=== PATIENT | female | born 1955 | race Caucasian/White ===

== ENCOUNTER 2023-10-25 14:54 | Outpatient (AMB) | payer BC, SELFPAY ==
[2023-10-25 15:04] VITALS: BP 100/60; PULSE 89; O2SAT 95; BMI 22.3
--- NOTE | 2023-10-25 15:04 | A.OFFVIS_ITS ---
Vital Signs 10/25/23 15:04 Height 5 ft 1 in Weight 117 lb 15.157 oz BMI 22.3 BP 100/60 Blood Pressure Location Lt brachial Position Sitting Pulse 89 Pulse Source Pulse Oximeter Pulse Oximetry (%) 95 Oxygen Delivery Method Room Air Intake Visit Reasons: Asthma Composition Weatherboard Installer Required: No Allergies No Known Allergies Allergy (Verified 10/25/23 15:07) HPI Comments Details: The patient is here for pulmonary evaluation. The patient is a 68 year woman with known history of asthma and allergies. Apparently her respiratory symptoms have been getting worse. The patient had been followed closely by Allergy in [place] for many years. She received allergy shots for multiple things throughout her life. And they were very effective in beneficial for many years. Now she is dealing herself with a new insole reinforcer. She did have allergy testing done in [place] do not have the results but apparently were not as significant. She started developing worsening cough nonproductive in nature moderate severity the last few months. She tried multiple inhalers including Breo and Wixela. Those were not helpful. Prior to that she had been on Advair that worked a little better. Her primary care doctor started her on Symbicort which seems to be working better for her. Her cough is better. She still complains of chest tightness and shortness of breath. Sometimes she feels hot flashes and she has not sure if his from menopause. She did undergo pulmonary function studies at [facility] back in July 2022. Her FEV1 to FVC was 66% consistent with an obstructive process and she did have a significant response to bronchodilators. She does feel the chest tightness at times. The patient has not had a chest x-ray. I do believe that is mainly due to bronchospasms and small airways disease. Seems like she is responding well to the Symbicort. She then using it as needed at this time. Will go ahead and request additional blood work to assess her asthma phenotype. The patient also will benefit getting a chest x-ray. Will hold off on PFTs and she just had some. [facility] Medical History (Updated 10/25/23 @ 22:47 by Lasha Mac MD) Chronic allergic rhinitis Allergies Chronic cough Asthma Social History (Updated 10/25/23 @ 15:11 by AYDIN Coyle) Patient Tobacco Use Status: Never used Tobacco Review of Systems Const Denies fever(s) ENT Reports nasal congestion and Reports nasal discharge Card Denies chest pain and Reports dyspnea on exertion Resp Reports cough, Reports dyspnea on exertion and Reports wheezing GI Reports no additional complaints Musc Reports no additional complaints Skin/Breast Denies rash Daniel/Lymph Reports no additional complaints Aller/Immun Reports wheezing Physical Exam Vital Signs: Last Vital Signs Pulse 89 10/25/23 15:04 BP 100/60 10/25/23 15:04 Pulse Ox 95 10/25/23 15:04 Oxygen Delivery Method Room Air 10/25/23 15:04 BMI result Body Mass Index 22.3 Const General: comfortable HEENT Head: Yes normocephalic Neck Neck: Yes supple Chest Chest palpation & inspection: normal inspection of the chest Resp Effort & Inspection: normal respiratory effort Cardio Heart sounds: S1 normal heart sound present and S2 normal heart sound present GI Palpation (GI): Soft to palpation Skin General skin exam: no rashes or lesions noted Extrem General: Yes no clubbing, cyanosis or edema Assessment & Plan Assessment & Plan (1) Asthma: Code(s): J45.909 - Unspecified asthma, uncomplicated Category: Medical Qualifiers: Asthma severity: moderate Asthma persistence: persistent Asthma complication type: uncomplicated Qualified Code(s): J45.40 - Moderate persistent asthma, uncomplicated (2) Chronic cough: Code(s): R05.3 - Chronic cough Category: Medical (3) Allergies: Code(s): T78.40XA - Allergy, unspecified, initial encounter Category: Medical Qualifiers: Encounter type: initial encounter Qualified Code(s): T78.40XA - Allergy, unspecified, initial encounter (4) Chronic allergic rhinitis: Code(s): J30.9 - Allergic rhinitis, unspecified Category: Medical Plan continue Symbicort RASTA as needed continue antihistamines as needed bloodwork/ allergy testing CXR F/U 2 months Orders: Orders Complete Blood Count Auto Diff Today J45.909 - Unspecified asthma, uncomplicated, R05.3 - Chronic cough, T78.40XA - Allergy, unspecified, initial encounter Immunoglobulin E Today J45.909 - Unspecified asthma, uncomplicated, R05.3 - Chronic cough, T78.40XA - Allergy, unspecified, initial encounter XR chest 2V Today J45.909 - Unspecified asthma, uncomplicated, R05.3 - Chronic cough, T78.40XA - Allergy, unspecified, initial encounter Resp Allergy Profile Region I Today J45.909 - Unspecified asthma, uncomplicated, R05.3 - Chronic cough, R91.1 - Solitary pulmonary nodule, T78.40XA - Allergy, unspecified, initial encounter Hypersensitive Pneumonitis Prf Today J45.909 - Unspecified asthma, uncomplicated, R05.3 - Chronic cough, R91.8 - Other nonspecific abnormal finding of lung field, T78.40XA - Allergy, unspecified, initial encounter Erythrocyte Sedimentation Rate Today J45.909 - Unspecified asthma, uncomplicate d, R05.3 - Chronic cough, T78.40XA - Allergy, unspecified, initial encounter OLLIE Reflex Titer and Pattern Today J45.909 - Unspecified asthma, uncomplicated, R05.3 - Chronic cough, T78.40XA - Allergy, unspecified, initial encounter Coding Level of Care Code New Pt Level 4 (17769) Diagnoses Moderate persistent asthma without complication J45.40 Asthma severity: moderate Asthma persistence: persistent Asthma complication type: uncomplicated Chronic cough R05.3 Allergy, initial encounter T78.40XA Encounter type: initial encounter Chronic allergic rhinitis J30.9 Time Spent (min) 40
== END 2023-10-25 15:35 | disposition home or self-care (01) ==
PROVIDERS: PCP Nurse Practitioner; Visit Provider Hospitalist
DX: J45.40 Moderate persistent asthma, uncomplicated (principal); R05.3 Chronic cough; T78.40XA Allergy, unspecified, initial encounter; J30.9 Allergic rhinitis, unspecified
CPT/HCPCS: 99204

== ENCOUNTER 2023-10-25 14:54 | Outpatient (REF) | payer BC, SELFPAY ==
[2023-10-25 15:52] LABS: MANUAL DIFF FLAG NO
[2023-10-25 16:38] LABS: Basophils Absolute Auto 0.1 X10*3/uL (0.0-0.2); Basophils Percent Auto 0.7 % (0-2); Eosinophils Absolute Auto 0.4 X10*3/uL (0.0-0.4); Eosinophils Percent Auto 6.3 % (0-4); Hematocrit 40.8 % (37.0-47.0); Hemoglobin 13.6 g/dl (12.0-16.0); Imm Gran Abs Auto 0.01 X10*3/uL (0.00-0.03); Imm Gran Pct Auto 0.1 % (0.0-0.4); Lymphocytes Absolute Auto 0.9 X10*3/uL (1.2-4.9); Lymphocytes Percent Auto 13.4 % (20-40); Mean Corpuscular HGB Conc 33.3 g/dl (31.0-35.0); Mean Corpuscular Hemoglobin 31.5 pg (27.0-33.0); Mean Corpuscular Volume 94.4 fL (80.0-98.0); Mean Platelet Volume 11.5 fL (9.4-12.3); Monocytes Absolute Auto 0.6 X10*3/uL (0.1-1.2); Monocytes Percent Auto 9.3 % (2-11); Neutrophils Absolute Auto 4.8 x10*3/uL (2.0-8.3); Neutrophils Percent Auto 70.2 % (45-73); Platelet Count 223 X10*3/uL (160-400); Red Blood Count 4.32 X10*6/uL (4.20-5.50); Red Cell Distribution Width 12.5 % (11.0-16.0); White Blood Count 6.9 X10*3/uL (4.8-10.8)
[2023-10-25 17:20] LABS: Erythrocyte Sedimentation Rate 10 MM/HR (0-20)
[2023-10-27 16:14] LABS: Anti Nuclear Antibody Screen NEGATIVE (NEGATIVE)
[2023-10-28 01:18] LABS: Class Alternaria alternata 0; Class Aspergillus fumigatus 0; Class Bermuda Grass 3; Class Birch 2; Class Cat Dander 2; Class Cladosporium herbarum 0; Class Cockroach 0/1; Class Common Ragweed 2; Class Cottonwood 2; Class Derm. pterony 0/1; Class Dermatophagoides farinae 1; Class Dog Dander 1; Class Elm 1; Class Maple Box Elder 2; Class Mountain Cedar 0/1; Class Mouse Urine Protein 0; Class Mugwort 3; Class Oak 2; Class Penicillium crysogenum 0; Class Rough Pigweed 0; Class Sheep Sorrel 0/1; Class Sycamore 0/1; Class Timothy Grass 2; Class Walnut Tree 0/1; Class White Ash 0/1; Class White Mulberry 0; D001 IgE D pteronyssinus 0.29 kU/L; D002 - IgE D farinae 0.59 kU/L; E001 - IgE Cat Dander 2.35 kU/L; E005 - IgE Dog Dander 0.58 kU/L; E072-IgE Mouse Urine <0.10 kU/L; I006-IgE Cockroach, German 0.19 kU/L; Immunoglobulin E 368 kU/L (<OR=114); M001 IgE Penicillium chrysogen <0.10 kU/L; M002 - IgE Cladosporium herbar <0.10 kU/L; M003 - IgE Aspergillus fumigat <0.10 kU/L; M006 - IgE Alternaria alternat <0.10 kU/L; T001 IgE Maple/Box Elder 2.27 kU/L; T003 IgE Common Silver Birch 2.98 kU/L; T006 - IgE Cedar, Mountain 0.15 kU/L; T007 - IgE Oak, White 2.39 kU/L; T008 IgE Elm, American 0.43 kU/L; T010 - IgE Walnut 0.21 kU/L; T014 - IgE Cottonwood 0.73 kU/L; T015 - IgE Ash, White 0.17 kU/L; T070 - IgE White Mulberry <0.10 kU/L; W001 - IgE Ragweed, Short 2.44 kU/L; W006 - IgE Mugwort 6.33 kU/L; W014 IgE Pigweed, Common <0.10 kU/L
[2023-11-14 11:47] LABS: Asperg fumigatus Precip Abs NEGATIVE
[2023-11-14 11:48] LABS: Micropoly faeni Abs NEGATIVE; Pigeon serum Abs NEGATIVE; Saccharo pora viridis Abs NEGATIVE; Thermo candidus Abs NEGATIVE; Thermoa vulgaris #1 NEGATIVE
== END 2023-10-25 14:55 | disposition home or self-care (01) ==
LOC: HO.LAB 14:54
PROVIDERS: PCP Nurse Practitioner; Visit Provider Hospitalist
DX: R05.3 Chronic cough (principal); J45.909 Unspecified asthma, uncomplicated; T78.40XA Allergy, unspecified, initial encounter; R91.1 Solitary pulmonary nodule; R91.8 Other nonspecific abnormal finding of lung field; J45.40 Moderate persistent asthma, uncomplicated
CPT/HCPCS: 36415; 82785; 85025; 85652; 86003; 86038; 86331; 86606; 86609

== ENCOUNTER 2024-02-10 14:29 | Outpatient (AMB) | payer BC, SELFPAY ==
--- NOTE | 2024-02-10 14:38 | A.OFFVIS_ITS ---
Vital Signs 02/10/24 14:39 Height 5 ft 1 in Weight 114 lb 10.246 oz BMI 21.7 BP 128/70 Blood Pressure Location Lt brachial Position Sitting Pulse 75 Pulse Source Pulse Oximeter Pulse Oximetry (%) 98 Oxygen Delivery Method Room Air Intake Visit Reasons: Asthma Applications Trainer Required: No Allergies No Known Allergies Allergy (Verified 02/10/24 14:41) HPI Comments Details: The patient is a 68 year woman with known history of asthma and allergies. Apparently her respiratory symptoms have been getting worse. The patient had been followed closely by Allergy in [place] for many years. She received allergy shots for multiple things throughout her life. And they were very effective in beneficial for many years. 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 She did have allergy testing done in [place] do not have the results but apparently were not as significant. She started developing worsening cough nonproductive in nature moderate severity the last few months. She tried multiple inhalers including Breo and Wixela. Those were not helpful. Prior to that she had been on Advair that worked a little better. Her primary care doctor started her on Symbicort which seems to be working better for her. Her cough is better. She still complains of chest tightness and shortness of br eath. Sometimes she feels hot flashes and she has not sure if his from menopause. She did undergo pulmonary function studies at [facility] back in July 2022. Her FEV1 to FVC was 66% consistent with an obstructive process and she did have a significant response to bronchodilators. She does feel the chest tightness at times. The patient has not had a chest x- ray. I do believe that is mainly due to bronchospasms and small airways disease. Seems like she is responding well to the Symbicort. She then using it as needed at this time. Will go ahead and request additional blood work to assess her asthma phenotype. The patient also will benefit getting a chest x- ray. Will hold off on PFTs and she just had some. 02/10/2024 the patient is here for pulmonary follow-up visit. Overall the patient has been doing well. She has been using her respiratory therapy as prescribed. Has not required her any rescue therapy. She does still get short of breath when she is exercising or going up a flight of stairs. We did review her pulmonary function studies the patient still has an obstructive airway component. She has significant small airways disease. This is consistent with her diagnosis of asthma. He does not have great reversibility of the central airways however. She has not had a chest x-ray. there was an order pending. she can have that whenever able. The patient will start using her rescue inhaler prior to exercise to see if she can provide some increased bronchodilation prior to the exercise. The patient also be a good candidate for singular. Will go ahead and start that. Hopefully we can deescalate her inhaler cortical steroids o While on a steroid sparing agent. [facility] Medical History (Updated 10/25/23 @ 22:47 by Lasha Mac MD) Chronic allergic rhinitis Allergies Chronic cough Asthma Social History (Updated 10/25/23 @ 15:11 by AYDIN Coyle) Patient Tobacco Use Status: Never used Tobacco Review of Systems Const Denies fever(s) ENT Reports nasal congestion and Reports nasal discharge Card Denies chest pain and Reports dyspnea on exertion Resp Reports cough, Reports dyspnea on exertion and Reports wheezing GI Reports no additional complaints Musc Reports no additional complaints Skin/Breast Denies rash Daniel/Lymph Reports no additional complaints Aller/Immun Reports wheezing Physical Exam Vital Signs: Last Vital Signs Pulse 75 02/10/24 14:39 BP 128/70 02/10/24 14:39 Pulse Ox 98 02/10/24 14:39 Oxygen Delivery Method Room Air 02/10/24 14:39 BMI result Body Mass Index 21.7 Const General: comfortable HEENT Head: Yes normocephalic Neck Neck: Yes supple Chest Chest palpation & inspection: normal inspection of the chest Resp Effort & Inspection: normal respiratory effort Cardio Heart sounds: S1 normal heart sound present and S2 normal heart sound present GI Palpation (GI): Soft to palpation Skin General skin exam: no rashes or lesions noted Extrem General: Yes no clubbing, cyanosis or edema Assessment & Plan Assessment & Plan (1) Asthma: Code(s): J45.909 - Unspecified asthma, uncomplicated Category: Medical Qualifiers: Asthma complication type: uncomplicated Asthma persistence: persistent Asthma severity: moderate Qualified Code(s): J45.40 - Moderate persistent asthma, uncomplicated (2) Chronic cough: Code(s): R05.3 - Chronic cough Category: Medical (3) Allergies: Code(s): T78.40XA - Allergy, unspecified, initial encounter Category: Medical Qualifiers: Encounter type: initial encounter Qualified Code(s): T78.40XA - Allergy, unspecified, initial encounter (4) Chronic allergic rhinitis: Code(s): J30.9 - Allergic rhinitis, unspecified Category: Medical Plan stop wixela start Advair HFA RASTA as needed continue antihistamines as needed singulair F/U 4-6 months Medications: New montelukast (Singulair) 10 mg PO BEDTIME 30 tabs 11RF 30 days J45.909 - Unspecified asthma, uncomplicated fluticasone propion-salmeterol 230-21 mcg/actuation (Advair HFA) 2 puffs inhalation BID 12 grams 11RF 30 days Coding Level of Care Code Est Pt Level 4 (74712) Diagnoses Moderate persistent asthma without complication J45.40 Asthma complication type: uncomplicated Asthma persistence: persistent Asthma severity: moderate Chronic cough R05.3 Allergy, initial encounter T78.40XA Encounter type: initial encounter Chronic allergic rhinitis J30.9 Time Spent (min) 16
[2024-02-10 14:39] VITALS: BP 128/70; PULSE 75; O2SAT 98; BMI 21.7
== END 2024-02-10 15:04 | disposition home or self-care (01) ==
PROVIDERS: PCP Internal Medicine; Visit Provider Hospitalist
DX: J45.40 Moderate persistent asthma, uncomplicated (principal); R05.3 Chronic cough; T78.40XA Allergy, unspecified, initial encounter; J30.9 Allergic rhinitis, unspecified
CPT/HCPCS: 99214

== ENCOUNTER → 2024-02-10 14:29 | Outpatient (BNVA) | payer BC, SELFPAY | PROVIDERS: PCP Nurse Practitioner; Visit Provider Hospitalist ==

== ENCOUNTER 2024-09-21 13:03 | Outpatient (AMB) | payer BC, SELFPAY ==
[2024-09-21 13:06] VITALS: BP 90/50; PULSE 85; O2SAT 96; BMI 22.9
--- NOTE | 2024-09-21 13:06 | MHC.OFFVIS ---
Vital Signs 09/21/24 13:06 Height 5 ft 1 in Weight 121 lb 4.068 oz BMI 22.9 BP 90/50 L Blood Pressure Location Rt brachial Position Sitting Pulse 85 Pulse Source Pulse Oximeter Pulse Oximetry (%) 96 Oxygen Delivery Method Room Air Intake Visit Reasons: Asthma Physical Damage Appraiser Required: No Accompanied by: Self / Same As Patient Allergies No Known Allergies Allergy (Verified 09/21/24 13:08) HPI Comments Details: The patient is a 69 year woman with known history of asthma and allergies. Apparently her respiratory symptoms have been getting worse. The patient had been followed closely by Allergy in [place] for many years. She received allergy shots for multiple things throughout her life. And they were very effective in beneficial for many years. 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 She did have allergy testing done in I do not have the results but apparently were not as significant. She started developing worsening cough nonproductive in nature moderate severity the last few months. She tried multiple inhalers including Breo and Wixela. Those were not helpful. Prior to that she had been on Advair that worked a little better. Her primary care doctor started her on Symbicort which seems to be working better for her. Her cough is better. She still complains of chest tightness and shortness of breath. Sometimes she feels hot flashes and she has not sure if his from menopause. She did undergo pulmonary function studies at [facility] back in July 2022. Her FEV1 to FVC was 66% consistent with an obstructive process and she did have a significant response to bronchodilators. She does feel the chest tightness at times. The patient has not had a chest x-ray. I do believe that is mainly due to bronchospasms and small airways disease. Seems like she is responding well to the Symbicort. She then using it as needed at this time. Will go ahead and request additional blood work to assess her asthma phenotype. The patient also will benefit getting a chest x-ray. Will hold off on PFTs and she just had some. 02/10/2024 the patient is here for pulmonary follow-up visit. Overall the patient has been doing well. She has been using her respiratory therapy as prescribed. Has not required her any rescue therapy. She does still get short of breath when she is exercising or going up a flight of stairs. We did review her pulmonary function studies the patient still has an obstructive airway component. She has significant small airways disease. This is consistent with her diagnosis of asthma. He does not have great reversibility of the central airways however. She has not had a chest x-ray. there was an order pending. she can have that whenever able. The patient will start using her rescue inhaler prior to exercise to see if she can provide some increased bronchodilation prior to the exercise. The patient also be a good candidate for singular. Will go ahead and start that. Hopefully we can deescalate her inhaler cortical steroids o While on a steroid sparing agent. 09/21/2024 the patient is here for a pulmonary follow-up visit. She has not been feeling well since about May. She started developing worsening wheezing chest tightness and cough. She has been using her rescue inhaler multiple times a day. She continues on the maintenance inhaler Advair with partial response. She continues with Singulair at nighttime. She was not aware that she can use Zyrtec along with the Singulair which I explained to her that due to different allergy medications. We did review her blood work she does have significant eosinophilia and also elevations in the IgE because of her severe persistent allergic asthma. Based on the fact that she is optimized on therapy and she is requiring her inhaler on a regular basis and she requires frequent prednisone bursts will go ahead and start the patient on Dupixent. [facility] Medical History (Updated 09/24/24 @ 20:50 by Lasha Mac MD) Chronic allergic rhinitis Allergies Chronic cough Asthma Social History Patient Tobacco Use Status: Never used Tobacco Review of Systems Const Denies chills, Denies fatigue, Denies fever(s), Denies weight gain and Denies weight loss ENT Denies dizziness Card Denies chest pain, Denies leg edema, Denies lightheadedness, Denies palpitations, Reports dyspnea on exertion, Denies orthopnea and Denies other Resp Reports cough, Reports dyspnea on exertion and Reports wheezing GI Denies hematochezia and Denies change in stool character Musc Denies abnormal gait, Denies muscle weakness, Denies numbness, Denies radiating pain into limb and Denies tingling Neuro Denies abnormal gait, Denies dizziness, Denies numbness and Denies tingling Endo Denies fatigue and Denies palpitations Aller/Immun Reports wheezing Physical Exam Vital Signs: Last Vital Signs Pulse 85 09/21/24 13:06 BP 90/50 L 09/21/24 13:06 Pulse Ox 96 09/21/24 13:06 Oxygen Delivery Method Room Air 09/21/24 13:06 BMI result Body Mass Index 22.9 Const General: comfortable HEENT Head: Yes normocephalic Neck Neck: Yes supple Chest Chest palpation & inspection: normal inspection of the chest Resp Effort & Inspection: normal respiratory effort Auscultation: wheezes and diminished lung sounds Cardio Heart sounds: S1 normal heart sound present and S2 normal heart sound present GI Palpation (GI): Soft to palpation Skin General skin exam: no rashes or lesions noted Extrem General: Yes no clubbing, cyanosis or edema Assessment & Plan Assessment & Plan (1) Asthma: Code(s): J45.909 - Unspecified asthma, uncomplicated Category: Medical Qualifiers: Asthma complication type: uncomplicated Asthma persistence: persistent Asthma severity: moderate Qualified Code(s): J45.40 - Moderate persistent asthma, uncomplicated (2) Chronic cough: Code(s): R05.3 - Chronic cough Category: Medical (3) Allergies: Code(s): T78.40XA - Allergy, unspecified, initial encounter Category: Medical Qualifiers: Encounter type: initial encounter Qualified Code(s): T78.40XA - Allergy, unspecified, initial encounter (4) Chronic allergic rhinitis: Code(s): J30.9 - Allergic rhinitis, unspecified Category: Medical Plan Start Trelegy 200mcg daily start dupixent RASTA as needed continue antihistamines as needed Bloodwork singulair F/U 4-6 months Orders: Orders Complete Blood Count Auto Diff 09/21/24 J45.40 - Moderate persistent asthma, uncomplicated Erythrocyte Sedimentation Rate 09/21/24 J45.40 - Moderate persistent asthma, uncomplicated Immunoglobulin E 09/21/24 J45.40 - Moderate persistent asthma, uncomplicated Immunoglobulins,IgG IgA IgM 09/21/24 J45.40 - Moderate persistent asthma, uncomplicated Medications: New prednisone PO daily; Take 2 tabs daily x 5 days, then 1 tablet daily x 5 days 15 tabs 0RF 10 days nmwzmbcemmp-[id number]-cmpavynx 200-62.5-25 mcg (Trelegy Ellipta) 1 inh inhalation DAILY 60 ea 12RF 30 days Coding Level of Care Code Est Pt Level 4 (14771) Complex EM visit Add On G2211 Diagnoses Moderate persistent asthma without complication J45.40 Asthma complication type: uncomplicated Asthma persistence: persistent Asthma severity: moderate Chronic cough R05.3 Allergy, initial encounter T78.40XA Encounter type: initial encounter Chronic allergic rhinitis J30.9 Time Spent (min) 17
--- OUTSIDE RECORDS SUMMARY | 2024-09-21 13:36 | XMS_ITS ---
Author Organization [facility] Address [address] [place] [address] Care Team Providers Care Manager Union Name Role Phone ANETTE PINA Primary Care Provider Judith Rodriguez [phone] REASON FOR VISIT BURNING UTI Medications Medication SIG (Take, Route, Fr equency, Duration) Notes Start Date End Date Status Bactrim DS 800-160 MG 1 tablet Orally TW ICE A DAY for 7 days 05/25/2024 Active Encounters Encounter Location Date Provider Diagnosis [facility] [address] [address] 05/25/2024 Judith Sharma Urinary tract infection, site not specified N39.0 Assessments Encounter Date Diagnosis (ICD Code) Assessment Notes Treatment Notes Treatment Clinical Notes Section Notes 05/25/2024 Urinary tract infection, site not specified (ICD-10 - N39.0) Plan Of Treatment Medication Medication Name Sig Start Date Stop Date Notes Bactrim DS 800-160 MG 1 tablet Orally TW ICE A DAY for 7 days 05/25/2024 Pending Test Test Name Order Date Urinalysis, Complete-[id number] 05/25/2024 Urine Culture, Routine-[id number] 05/25/2024 Next Appt Details Provider Name:Judith mcclure, 01/10/2025 10:00:00 AM, [address] [place] [address], [address], [place], [address], Progress Notes * DALY, ROCKYDOB:1955 (69 yo F)Acc No.[id number]:05/25/2024 Patient:?ROCKY KAUFFMAN :1955???Age:69 Y???Sex:Female Address:[address] [place] [address], [address] * Refills? Start Bactrim DS Tablet, 800-160 MG, Orally, 14 Tablet, 1 tablet, TWICE A DAY, 7 days, Refills=0 Subjective: * Chief Complaints: * ???BURNING UTI * Medical History:? * Surgical History:? * Hospitalization/Major Diagno stic Procedure:? * Medications:? Objective: * Vitals:? * Physical Examination:? Assessment: * Assessment: 1.?Urinary tract infection, site not specified - N39.0??? Plan: * Treatment: ?LAB: Urine Culture, Routine-[id number]* MAITE UTI 2.?Others? Start Bactrim DS Tablet, 800-160 MG, 1 tablet, Orally, TWICE A DAY, 7 days, 14 Tablet, Refills 0. ? * Procedure Codes:? * true * Date:? Generated for Valorie velarde/Darwin/eTransmitting on:?09/21/2024 01:36 PM EDT
--- OUTSIDE RECORDS SUMMARY | 2024-09-21 13:36 | XMS_ITS | Clinical Summary ---
Author Organization [facility] Address [address] [place] [address] Care Team Providers Care Winterizer Name Role Phone Unavailable Primary Care Provider Unavailabl e Social History Tobacco Use Types Packs/Day Years Used Date Smoking Tobacco: Never Assessed Comments Unknown Sex and Gender Information Value Date Recorded Sex Assigned at Not on file Legal Sex Female 8:42 AM EST Gender Identity Not on file Sexual Orientation Not on file Plan of Treatment Health Maintenance Due Date Last Done Comments DTaP,Tdap,and Td Vaccines (1 - Tdap) 1976 Pneumococcal Vaccine: 50+ Years (1 of 1 - PCV) 2007 Zoster Vaccines (1 of 2) 2007 Colorectal Cancer Screening: Colonoscopy 05/09/2022 Depression Screening 05/09/2022 Falls Risk Assessment 05/09/2022 Hepatitis C Screening 05/09/2022 Social Influencers of Health Screening 05/09/2022 COVID-19 Vaccine ( season) 2024 Breast Cancer Screening 01/05/2025 01/06/20 23, 01/01/2022, 12/04/2020, Additional history exists Influenza Vaccine (Season Ended) 2025 RSV Immunization Adult Patients (1 - 1-dose 75+ series) 2032 Osteoporosis Screening (Bone Density Screening) 02/13/2034 02/14/2024, 01/05/2023, 12/04/2020, Additional history exists HIB Vaccines Aged Out No longer eligi ble based on patient's age to complete this topic HPV Vaccines Aged Out No longer eligi ble based on patient's age to complete this topic Hepatitis A Vaccines Aged Out No long er eligible based on patient's age to complete this topic Hepatitis B Vaccines Aged Out No long er eligible based on patient's age to complete this topic IPV Vaccines Aged Out No longer eligi ble based on patient's age to complete this topic MMR Vaccines Aged Out No longer eligi ble based on patient's age to complete this topic Meningococcal ACWY Vaccine Aged Out N o longer eligible based on patient's age to complete this topic Meningococcal B Vaccine Aged Out No l onger eligible based on patient's age to complete this topic RSV Immunization Patients Under 20 months Aged Out No longer eligible based on patient's age to complete this topic Varicella Vaccines Aged Out No longer eligible based on patient's age to complete this topic Procedures Procedure Name Priority Date/Time Associated Diagnosis Comments [facility] DEXA AXIAL SKELETON Routine 02/14/2024 3:57 PM EDT Age-related osteoporosis without current pathological fracture [facility] SCREENING DIGITAL Routine 01/05/2023 10:58 AM EDT Encounter for screening mammogram for malignant neoplasm of breast from Last 3 Months or Most Recently Relevant to Health Maintenance Results * [facility] DEXA AXIAL SKELETON (02/14/2024 3:57 PM EDT) Anatomical Region Laterality Modality Mammography 02/14/2024 1:51 PM EDT Narrative 02/14/2024 3:57 PM EDT [facility] Diagnostic Imaging Department [address] [place], [place] [id number] Patient: ??ROCKY KAUFFMAN ?/Age/Sex: 1955 - - Unit#: ??[id number] ? Location/Status: ??SPDIMAM/REG CLI ? Mnemonic/Ordering Site: ??MAMDEXAAX/SPMAM Ordering Physician: ??JUDITH MERCER MD [facility] Dexa Axial Skeleton - 02/14/24 - [id number] Report Status:Signed History: Low estrogen state due to menopause. Personal history of fracture. Parent hip fracture. Rheumatoid arthritis. Comparison: 01/05/23 Findings: Bone densitometry is performed utilizing dual energy x-ray absorptiometry (DXA) in the [employer] unit. The lumbar spine and proximal femora are evaluated in the AP projection. The FRAX questionaire was completed. The results indicate osteoporosis, with a left femoral neck T-score of -2.7. The Z score is -1.6, indicating low bone mineral density for age. There has been a statistically significant decrease in bone mineral density in the spine since the previous study. ??The detailed DEXA report will be mailed to the referring physician's office. DualFemur FRAX: 10-year Probability of Fracture: Major Osteoporotic 45.0 percent ??Hip 10.1 percent. IMPRESSION: Osteoporosis. [id number] Dictating Physician: ??DIVINA YOUNG MD Electronically Signed by: ??DIVINA YOUNG MD Dic Date/Time: ??02/14/24 1555 Sign date/Time: ??02/14/24 1557 Procedure Note Divina Young MD - 03/21/2024 [facility] Diagnostic Imaging Department [address] [place] [address] Patient: ROCKY KAUFFMAN Angie MendenhallB./Age/Sex: 1955 - 68 - F Unit#: [id number] Location/Status: SPDIMAM/REG CLI Mnemonic/Ordering Site: MAMDEXAAX/SPMAM Ordering Physician: JUDITH MERCER MD [facility] Dexa Axial Skeleton - 02/14/24 - [id number] Report Status:Signed History: Low estrogen state due to menopause. Personal history offracture. Parent hip fracture. Rheumatoid arthritis. Comparison: 01/05/23 Findings: Bone densitometry is performed utilizing dual energy x-ray absorptiometry(DXA) in the [employer] unit. The lumbar spine and proximal femora areevaluated in the AP projection. The FRAX questionaire was completed. The results indicate osteoporosis, with a left femoral neck T-score of-2.7. The Z score is -1.6, indicating low bone mineral density for age. There has been a statistically significant decrease in bone mineraldensity in the spine since the previous study. The detailed DEXA report will bemailed to the referring physician's office. DualFemur FRAX: 10-year Probability of Fracture: Major Osteoporotic 45.0 percent Hip 10.1 percent. IMPRESSION: Osteoporosis. [id number] Dictating Physician: DIVINA YOUNG MD Electronically Signed by: DIVINA YOUNG MD Dic Date/Time: 02/14/24 1558 Sign date/Time: 02/14/24 1552 us Judith Mercer MD IMG BI PROCEDURES Final Re sult * [facility] SCREENING DIGITAL (01/05/2023 10:58 AM EDT) Anatomical Region Laterality Modality Mammography 01/05/2023 9:13 AM EDT Narrative 01/05/2023 10:58 AM EDT [facility] Diagnostic Imaging Department [address] [place] [id number] Patient: ??ROCKY KAUFFMAN ?/Age/Sex: 1955 - 67 - F Unit#: ??[id number] ? Location/Status: ??SPDIMAM/REG CLI ? Mnemonic/Ordering Site: ??DIGSC/SPMAM Ordering Physician: ??ADRIENNE NEW MD [facility] Screening Digital - 01/05/23 - 957 Report Status:Signed EXAM: [facility] Screening Digital EXAM DATE AND TIME: 01/05/2023 9:59 AM HISTORY: ??Annual screening, COMPARISON: ??01/01/2022, 12/04/2020, 10/25/2008, 09/17/2003 TECHNIQUE: Bilateral digital breast tomosynthesis was performed in the CC and MLO projections. Computer aided detection with CSRware 3D 3.1 was employed. TISSUE DENSITY: b. There are scattered areas of fibroglandular density. FINDINGS: Possible developing asymmetry in the right breast at 6 o'clock, mid depth, seen best on image 24 of the CC tomography. ??No suspicious finding in the left breast. IMPRESSION: Possible developing asymmetry in the right breast at 6 o'clock, mid depth, seen best on image 24 of the CC tomography. BI-RADS: ??Category 0: Incomplete - Need Additional Imaging Evaluation RECOMMENDATION(S): Recommend right breast diagnostic mammogram with right cc spot compression tomography. 3341F, 7025F Dictating Physician: ??NACHO BARBA MD Electronically Signed by: ??NACHO BARBA MD Dic Date/Time: ??01/05/23 1051 Sign date/Time: ??01/05/23 1058 Procedure Note Nacho Barba MD - 07/12/2023 [facility] Diagnostic Imaging Department [address] [place] [id number] Patient: ROCKY KAUFFMAN Angie /Age/Sex: 1955 - 67 - F Unit#: [id number] [facility]Ordering Site: [facility] Ordering Physician: ADRIENNE NEW MD Benjamin Screening Digital - 01/05/23 - 957 Report Status:Signed EXAM: Benjamin Screening Digital EXAM DATE AND TIME: 01/05/2023 9:59 AM HISTORY: Annual screening, COMPARISON: 01/01/2022, 12/04/2020, 10/25/2008, 09/17/2003 TECHNIQUE: Bilateral digital breast tomosynthesis was performed in the CCand MLO projections. Computer aided detection with CSRware 3D 3.1was employed. TISSUE DENSITY: b. There are scattered areas of fibroglandular density. FINDINGS: Possible developing asymmetry in the right breast at 6 o'clock, mid depth,seen best on image 24 of the CC tomography. No suspicious finding in theleft breast. IMPRESSION: Possible developing asymmetry in the right breast at 6 o'clock, mid depth,seen best on image 24 of the CC tomography. BI-RADS: Category 0: Incomplete - Need Additional Imaging Evaluation RECOMMENDATION(S): Recommend right breast diagnostic mammogram with right cc spotcompression tomography. 3341F, 7025F Dictating Physician: ANCHO BARBA MD Electronically Signed by: NACHO BARBA MD Dic Date/Time: 01/05/23 1051 Sign date/Time: 01/05/23 1058 Adrienne New MD IMG BI PROCEDURES Final Result from Last 3 Months or Most Recently Relevant to Health Maintenance
--- OUTSIDE RECORDS SUMMARY | 2024-09-21 13:37 | XMS_ITS ---
Author Organization [facility] Address [address] [place] [address] Care Team Providers Care Back Shoe Operator Name Role Phone ANETTE PINA Primary Care Provider Judith Rodriguez [phone] REASON FOR VISIT STILL W/UTI SX'S Encounters Encounter Location Date Provider Diagnosis [facility] [address] [address] 06/01/2024 Judith Sharma Plan Of Treatment Next Appt Details Provider Name:Judith mcclure, 01/10/2025 10:00:00 AM, [address] [place] [address], [address], [place], [address], Progress Notes * ROCKY KAUFFMANDOB:1955 (69 yo F)Acc No.[id number]:06/01/2024 Patient:?ROCKY KAUFFMAN :1955???Age:69 Y???Sex:Female Address:[address] [place] [address], [address] * true * Date:? Generated for Printi prachi/Darwin/eTransmitting on:?09/21/2024 01:36 PM EDT
--- OUTSIDE RECORDS SUMMARY | 2024-09-21 13:37 | XMS_ITS ---
Author Organization [facility] Address [address] [facility] [address] [place] [address] Care Team Providers Care Signal Processing Engineer Name Role Phone ANETTE PINA Primary Care Provider Judith Rodriguez Unavailable [phone] Results Component Value Reference Range Notes Urinalysis, Complete-[id number] Reviewed date:05/28/2024 07:58:19 AM Interpretation: Performing Lab:[facility], [address] [place] [address], Phone - [phone], Director - Eddie Notes/Report: Clinical Information:SRC:UC Clinical Information:SRC:UC Specific [place] 1.006 1.005-1.030 pH 6.5 5.0-7.5 Urine-Color Yellow Yellow Appearance Cloudy Clear WBC Esterase 3+ Negative Protein Negative Negative/Trace Glucose Negative Negative Ketones Negative Negative Occult Blood 1+ Negative Bilirubin Negative Negative Urobilinogen,Semi-Qn 0.2 0.2-1.0 mg/dL Nitrite, Urine Negative Negative Microscopic Examination See below: Micr oscopic was indicated and was performed. WBC >30 0 - 5 /hpf RBC None seen 0 - 2 /hpf Epithelial Cells (non renal) 0-10 0 - 10 /hpf Casts None seen None seen /lpf Bacteria Many None seen/Few Urine Culture, Routine-[id number] Reviewed date:05/28/2024 07:58:06 AM Interpretation: Performing Lab:[facility], [address] [facility], [place], Phone - [phone], Director - Eddie Notes/Report: Clinical Information:SRC:UC Clinical Information:SRC:UC Urine Culture, Routine Final report Result 1 Escherichia coli Greater than 100,000 colony forming units per mL Cefazolin <=4 ug/mL Cefazolin with an AGUSTIN <=16 predicts susceptibility to the oral agents cefaclor, cefdinir, cefpodoxime, cefprozil, cefuroxime, cephalexin, and loracarbef when used for therapy of uncomplicated urinary tract infections due to E. coli, Klebsiella pneumoniae, and Proteus mirabilis. Antimicrobial Susceptibility S = Susceptible; I = Intermediate; R = Resistant P = Positive; N = Negative MICS are expressed in micrograms per mL Antibiotic RSLT#1 RSLT#2 RSLT#3 RSLT#4 Amoxicillin/Clavulanic Acid S Ampicillin R Cefepime S Ceftriaxone S Cefuroxime S Ciprofloxacin S Ertapenem S Gentamicin S Imipenem S Levofloxacin S Meropenem S Nitrofurantoin S Piperacillin/Tazobactam S Tetracycline S Tobramycin S Trimethoprim/Sulfa S PDF Report Reviewed date:05/28/2024 07:56:41 AM Interpretation: Performing Lab:[facility], [address] [place] [address], [place], Phone - [phone], Director - Eddie Notes/Report: Clinical Information:SRC:UC REASON FOR VISIT UTI SX'S AGAIN Encounters Encounter Location Date Provider Diagnosis [facility] [address] [place] [address] 05/16/2024 Judith Sharma Frequency of micturition R35.0 Assessments Encounter Date Diagnosis (ICD Code) Assessment Notes Treatment Notes Treatment Clinical Notes Section Notes 05/16/2024 Frequency of micturition (ICD-10 - R35.0) Plan Of Treatment Next Appt Details Provider Name:Judith Angie mcclure, 01/10/2025 10:00:00 AM, [address], [address], [place], [address], Progress Notes * PARADISE KAUFFMANROGEDOB:1955 (69 yo F)Acc No.[id number]:05/16/2024 Patient:?ROCKY KAUFFMAN :1955???Age:69 Y???Sex:Female Address:[address] [place] [address], [place] [address] Subjective: * Chief Complaints: * ???UTI SX'S AGAIN * Medical History:? * Surgical History:? * Hospitalization/Major Diagno stic Procedure:? * Medications:? Objective: * Vitals:? * Physical Examination:? Assessment: * Assessment: 1.?Frequency of micturition - R35.0??? Plan: * Treatment: * Procedure Codes:? * true * Date:? Generated for Valorie velarde/Darwin/Judith on:?09/21/2024 01:36 PM EDT
--- OUTSIDE RECORDS SUMMARY | 2024-09-21 13:37 | XMS_ITS | Patient Health Record ---
Author Organization [facility] Address [address] [place] [address] Care Team Providers Care Special Services Director Name Role Phone ANETTE PINA Primary Care Provider Judith Rodriguez [phone] Allergies No Known Allergies Results Component Value Reference Range Notes Urinalysis, Complete-[id number] Reviewed date:05/28/2024 07:58:19 AM Interpretation: Performing Lab:[facility], [facility], Phone - [phone], Director - Eddie Notes/Report: Clinical Information:SRC:UC Clinical Information:SRC:UC Specific [place] 1.006 1.005-1.030 pH 6.5 5.0-7.5 Urine-Color Yellow [...] /lpf Bacteria Many None seen/Few Urine Culture, Routine-[id number] Reviewed date:05/28/2024 07:58:06 AM Interpretation: Performing Lab:[facility], [facility], [place], Phone - [phone], Director - Eddie Notes/Report: Clinical Information:SRC:UC Clinical [...] Report Reviewed date:05/28/2024 07:56:41 AM Interpretation: Performing Lab:[facility], [address] [place] [address], Phone - [phone], Director - Eddie Notes/Report: Clinical Information:SRC: Urine Culture, Routine-[id number] Reviewed date:03/05/2024 09:27:54 AM Interpretation: Performing Lab:[facility], [address] [place] [address], [place], Phone - [phone], Director - Eddie Notes/Report: Clinical Information:SRC: Clinical Information:SRC: Urine Culture, Routine Final report Result 1 [...] S Tetracycline S Tobramycin S Trimethoprim/Sulfa S Urinalysis, Complete-[id number] Reviewed date:03/04/2024 07:33:01 AM Interpretation: Performing Lab:[facility], [address] [facility], [place], Phone - [phone], Director - Eddie Notes/Report: Clinical Information:SRC: Clinical Information:SRC: Specific [place] 1.012 1.005-1.030 pH 6.5 5.0-7.5 Urine-Color Yellow Yellow Appearance Turbid Clear WBC Esterase 3+ Negative Protein 1+ Negative/Trace Glucose Negative Negative Ketones Negative Negative Occult Blood 3+ Negative Bilirubin Negative Negative Urobilinogen,Semi-Qn 0.2 0.2-1.0 mg/dL Nitrite, Urine Positive Negative Microscopic Examination See below: Micr oscopic was indicated and was performed. WBC >30 0 - 5 /hpf RBC >30 0 - 2 /hpf Epithelial Cells (non renal) 0-10 0 - 10 /hpf Casts None seen None seen /lpf Bacteria Many None seen/Few PDF Report Reviewed date:03/04/2024 07:28:07 AM Interpretation: Performing Lab:[facility], [address] [facility], [place], Phone - [phone], Director - Eddie Notes/Report: Clinical Information:SRC: Reason For Referral No Information Medications Medication SIG (Take, Route, Frequency, Duration) Notes Start Date End Date Status Bactrim DS 800-160 MG 1 tablet Orally TWICE A DAY for 7 days 02/29/2024 Active Estradiol 0.0375 MG/24HR 1 patch to skin Transdermal TWICE WEEKLY for 90 days 12/09/2021 Active Ativan 1 MG 1 tablet Orally Twice a day as needed for 30 days 01/02/2020 Active Progesterone 100 MG 1 capsule Orally Every night for 30 days Only dispense 30 day supply. Supposed to be coming off this. Will discuss with her at her December appointment. Ty Active Estradiol 0.0375 MG/24HR 1 patch to skin to clean, dry skin Transdermal ONCE A WEEK for 90 days 12/10/2022 Active Xyzal 5 MG 1 tablet in the evening Orally Once a day for 30 day(s) Active Estradiol 0.0375 MG/24HR 1 patch to skin Transdermal Once a week, Start Tapering Down for 90 days Active Prometrium 100 MG 1 capsule at bedtime Orally Once a day for 90 days 12/09/2021 Active Meloxicam 15 MG TAKE 1 TABLET BY MOUTH EVERY DAY Oral for 30 Active Calcium 1 tab Oral for 14 days chews Active Bactrim DS 800-160 MG 1 tablet Orally TWICE A DAY for 7 days 05/25/2024 Active Airborne - as directed Orally Active Yuvafem 10 MCG USE 1 TABLET VAGINAL TWICE A WEEK for 84 Active Prometrium 100 MG 1 capsule at bedtime Orally Once a day for 90 days 12/10/2022 Active Prometrium 100 MG 1 capsule at bedtime Orally Once a day for 90 days 01/09/2024 Active Estradiol 0.0375 MG/24HR 1 patch to skin Transdermal Two times a Week for 90 days 01/09/2024 Active Immunizations Vaccine Route Administration Date Status Comme nts Influenza, live, intranasal Intramuscular 04/14/2011 Pendi ng Tdap Unknown 08/24/2011 Pending Social History Tobacco Use: Social History Observation Description Date Details (start date - stop date) Never Smoker NA - NA Tobacco Use/Smoking Question Answer Notes Are you a nonsmoker Sexual History Question Answer Notes Had sex in the past 12 months (vaginal, oral, or anal)? Yes with Men only Prevention strategies discussed: Other Problems Problem Type SNOMED Code ICD Code Onset Dates Problem Status W/U Status Risk Notes Problem Muscle pain (47559856) Unspecified myalgia and myositis (729.1) Active confirmed Problem Menopause (330352731) Menopausal and female climacteric states (N95.1) Active confirmed Problem SI - Stress incontinence (15524408) Stress incontinence (female) (male) (N39.3) Active confirmed Problem Age-related osteoporosis (388531747) Age-related osteoporosis without current pathological fracture (M81.0) Active confirmed Problem Anxiety disorder (495866798) Anxiety disorder, unspecified (F41.9) Active confirmed Problem Functional urinary incontinence (194881741) Functional urinary incontinence (R39.81) Active confirmed Problem Menopause (352475212) Menopausal and female climacteric states (N95.1) Active confirmed Problem Anxiety state (820268713) Anxiety state, unspecified (300.00) Active confirmed Major Problem Asthma (disorder) (053370243) Asthma, unspecified, unspecified status (493.90) Active confirmed Major Problem Metrorrhagia (79585052) Metrorrhagia (626.6) Active confirmed Diag Problem Abnormal vaginal bleeding (140653132) Other disorder of menstruation and other abnormal bleeding from female genital tract (626.8) Active confirmed Major Problem Menopausal symptom (36041163) Symptomatic menopausal or female climacteric states (627.2) Active confirmed Diag Problem Backache (571155942) Unspecified backache (724.5) Active confirmed Major Problem Enthesopathy of hip region (69430349) Enthesopathy of hip region (726.5) Active confirmed Diag Problem Joint pain (90892701) Pain in joint, site unspecified (719.40) Active confirmed Diag Problem Cervicalgia (94948414) Cervicalgia (723.1) Active confirmed Diag Problem Gynecological examination normal (811647825459784) Routine gynecological examination (V72.31) Active confirmed Problem Dietary management surveillance (387764933) Dietary surveillance and counseling (V65.3) Active confirmed Diag Problem Exercises teaching, guidance, and counseling (873746222) Exercise counseling (V65.41) Active confirmed Diag Vital Signs Blood pressure diastolic 70 mm Hg 01/09/2024 Height 60.5 in 01/09/2024 Blood pressure systolic 98 mm Hg 01/09/2024 Weight 114 lbs 01/09/2024 BMI 21.9 kg/m2 01/09/2024 Encounters Encounter Location Date Provider Diagnosis Total [address] [address] 01/09/2024 Judith Sharma Encounter for screening mammogram for malignant neoplasm of breast Z12.31 ; Age-related osteoporosis without current pathological fracture M81.0 ; Hormone replacement therapy Z79.890 ; Encounter for gynecological examination (general) (routine) without abnormal findings Z01.419 and Dense breasts, unspecified R92.[address] [address] 02/29/2024 Judith Sharma Frequency of micturition R35.[address] [address] 03/14/2024 Judith Sharma Total [facility] [address] [place] [address] 05/16/2024 Judith Sharma Frequency of micturition R35.0 Total [facility] [address] [place] [address] 05/25/2024 Judith Sharma Urinary tract infection, site not specified N39.[address] [address] 06/01/2024 Judith Sharma Assessments Encounter Date Diagnosis (ICD Code) Assessment Notes Treatment Notes Treatment Clinical Notes Section Notes 01/09/2024 Encounter for screening mammogram for malignant neoplasm of breast (ICD-10 - Z12.31) REGULAR MAMMOGRAMS AND SBE'S WERE RECOMMENDED. 02/29/2024 Frequency of micturition (ICD-10 - R35.0) 05/16/2024 Frequency of micturition (ICD-10 - R35.0) 05/25/2024 Urinary tract infection, site not specified (ICD-10 - N39.0) 01/09/2024 Age-related osteoporosis without current pathological fracture (ICD-10 - M81.0) DISCUSSED OSTEOPOROSIS AND ITS IMPACT ON HER HEALTH. ADEQUATE CALCIUM AND VIT D. WEIGHT BEARING EXERCISES. OSTEO PRECAUTIONS. REPEAT BMD THIS YEAR. 01/09/2024 Hormone replacement therapy (ICD-10 - Z79.890) DISCUSSED HRT, ITS BENEFITS AND RISKS. DISCUSSED ESTROGEN AND ITS BENEFICIAL EFFECT ON BONE HEALTH. CONTINUE HRT, WEAN OFF SLOWLY. 01/09/2024 Dense breasts, unspecified (ICD-10 - R92.30) DISCUSSED DENSE BREASTS ON MAMMOGRAM AND ITS IMPLICATIONS. 3D MAMMOGRAMS WERE RECOMMENDED. 01/09/2024 Encounter for gynecological examination (general) (routine) without abnormal findings (ICD-10 - Z01.419) NO PAP TEST, DUE IN 2024. Plan Of Treatment Pending Test Test Name Order Date MAMMOGRAM, SCREENING 09/30/2014 MAMMOGRAM, SCREENING 12/09/2021 MAMMOGRAM, SCREENING 12/10/2022 MAMMOGRAM, SCREENING 01/09/2024 25OH VITAMIN D 10/02/2018 25OH VITAMIN D 09/07/2017 COMPLETE URINALYSIS 01/11/2022 COMPREHENSIVE METABOLIC PANEL 09/07/2017 COMPREHENSIVE METABOLIC PANEL 10/02/2018 N-TELOPEPTIDE CROSS 10/02/2018 N-TELOPEPTIDE CROSS 09/07/2017 PTH, INTACT 09/07/2017 PTH, INTACT 10/02/2018 THIN PREP,HPV,MAYCO IF HPV+ (>29YR)(SCRN) 07/12/2016 TSH 10/02/2018 TSH 09/07/2017 URINE CULTURE 01/11/2022 BONE DENSITY 12/10/2022 BONE DENSITY 01/09/2024 MM Digital Mammo Screening 01/09/2024 MM Digital Mammo Screening 12/10/2022 MM Digital Mammo Screening 12/09/2021 MM Digital Screening Mammogram 3D 2020 Urinalysis, Complete-[id number] 05/25/2024 Urine Culture, Routine-[id number] 05/25/2024 Next Appt Details Provider Name:Judith Angie mcclure, 01/10/2025 10:00:00 AM, [address], [address], [place], [address], Insurance Providers Payer Name Payer Address Payer Phone Subscriber Number Group Number Insured Name Patient Relationship to Insured Coverage Start Date Coverage End Date [employer] MEDICARE PPO [address] [place] [address] [phone] [id number] HAMILTON Self - patient is the insured Medical (General) History Medical History History ICD Code Pain in unspecified joint M25.50 Cervicalgia M54.2 Dietary counseling and surveillance Z71. 3 Other specified counseling Z71.89 Osteophyte, unspecified hip M25.759 Excessive and frequent menstruation with irregular cycle N92.1 Menopausal and female climacteric states N95.1 Unspecified myalgia and myositis 729.1 Unspecified asthma, uncomplicated J45.90 9 Anxiety disorder, unspecified F41.9 Other dorsalgia M54.89 Other specified abnormal uterine and vag inal bleeding N93.8 Major depressive disorder, recurrent, mi ld F33.0 Hormone replacement therapy (postmenopau nehemias) Z79.890 Fracture of rib(s), sternum, larynx, and trachea 807 Inconclusive mammogram R92.2 Mammographic heterogeneous density, bila teral breasts R92.333 Surgical History Surgery Date(Month/Year) Bilateral Tubal Ligation Colonoscopy Nasal Septum Surgery Oral Sugery [place] Teeth Right Knee Surgery - Meniscus Left Knee Replacement 10/09/19 Right Knee Replacement 11/23/19 BASAL CELLM REMOVAL 04/2023 Hospitalization History Reason Date(Month/Year) See Surgical Hx 3 Vaginal Deliveries
== END 2024-09-21 13:40 | disposition home or self-care (01) ==
LOC: HO.HPS 13:04
PROVIDERS: PCP Internal Medicine; Visit Provider Hospitalist
DX: J45.40 Moderate persistent asthma, uncomplicated (principal); R05.3 Chronic cough; T78.40XA Allergy, unspecified, initial encounter; J30.9 Allergic rhinitis, unspecified
CPT/HCPCS: 99214

== ENCOUNTER 2024-09-21 13:03 | Outpatient (REF) | payer BC, SELFPAY ==
[2024-09-21 14:01] LABS: MANUAL DIFF FLAG NO
--- OUTSIDE RECORDS SUMMARY | 2024-09-21 14:04 | XMS_ITS | Clinical Summary ---
Author Organization [facility] Address [address] [place] [address] Care Team Providers Care Teleprinter Name Role Phone Unavailable Primary Care Provider [...] Procedure Name Priority Date/Time Associated Diagnosis Comments [facility] DEXA AXIAL SKELETON Routine 02/14/2024 3:57 PM EDT Age-related osteoporosis without current pathological fracture [facility] SCREENING DIGITAL Routine 01/05/2023 10:58 AM EDT Encounter for screening mammogram for malignant neoplasm of breast from Last 3 Months or Most Recently Relevant to Health Maintenance Results * [facility] DEXA AXIAL SKELETON (02/14/2024 3:57 PM EDT) Anatomical Region Laterality Modality Mammography 02/14/2024 1:51 PM EDT Narrative 02/14/2024 3:57 PM EDT [facility] Diagnostic Imaging Department [address] [place], [place] [id number] Patient: ??ROCKY KAUFFMAN ?/Age/Sex: 1955 - - Unit#: ??[id number] ? Location/Status: ??SPDIMAM/REG CLI ? Mnemonic/Ordering Site: ??MAMDEXAAX/SPMAM Ordering Physician: ??JUDITH MERCER MD [facility] Dexa Axial Skeleton - 02/14/24 - 5315 Report Status:Signed History: Low estrogen state due to menopause. Personal history of fracture. Parent hip fracture. Rheumatoid arthritis. Comparison: 01/05/23 Findings: Bone densitometry is performed utilizing dual energy x-ray absorptiometry (DXA) in the [employer] unit. The lumbar spine and proximal femora [...] 45.0 percent ??Hip 10.1 percent. IMPRESSION: Osteoporosis. [id number] Dictating Physician: ??DIVINA YOUNG MD Electronically Signed by: ??DIVINA YOUNG MD Dic Date/Time: ??02/14/24 1555 Sign date/Time: ??02/14/24 1557 Procedure Note Divina Young MD - 03/21/2024 [facility] Diagnostic Imaging Department [address] [place] [address] Patient: ROCKY KAUFFMAN Angie MendenhallB./Age/Sex: 1955 - 68 - F Unit#: [id number] Location/Status: SPDIMAM/REG CLI Mnemonic/Ordering Site: MAMDEXAAX/SPMAM Ordering Physician: JUDITH MERCER MD [facility] Dexa Axial Skeleton - 02/14/24 - 9852 Report Status:Signed History: Low estrogen state due to menopause. Personal history offracture. Parent hip fracture. Rheumatoid arthritis. Comparison: 01/05/23 Findings: Bone densitometry is performed utilizing dual energy x-ray absorptiometry(DXA) in the [employer] unit. The lumbar spine and proximal femora [...] 45.0 percent Hip 10.1 percent. IMPRESSION: Osteoporosis. [address]706 Dictating Physician: DIVINA YOUNG MD Electronically Signed by: DIVINA YOUNG MD Dic Date/Time: 02/14/24 1554 Sign date/Time: 02/14/24 1554 us Judith Mercer MD IMG BI PROCEDURES Final Re sult * [facility] SCREENING DIGITAL (01/05/2023 10:58 AM EDT) Anatomical Region Laterality Modality Mammography 01/05/2023 9:13 AM EDT Narrative 01/05/2023 10:58 AM EDT [facility] Diagnostic Imaging Department [address] [place] [id number] Patient: ??ROCKY KAUFFMAN ?/Age/Sex: 1955 - 67 - F Unit#: ??[id number] ? Location/Status: ??SPDIMAM/REG CLI ? Mnemonic/Ordering Site: ??DIGSC/SPMAM Ordering Physician: ??ADRIENNE NEW MD [facility] Screening Digital - 01/05/23 - 957 Report Status:Signed EXAM: [facility] Screening Digital EXAM DATE AND TIME: 01/05/2023 9:59 AM HISTORY: ??Annual screening, COMPARISON: ??01/01/2022, 12/04/2020, 10/25/2008, 09/17/2003 TECHNIQUE: Bilateral digital breast tomosynthesis was performed in the CC and MLO projections. Computer aided detection with [x+1] 3D 3.1 was employed. TISSUE DENSITY: b. [...] Procedure Note Nacho Barba MD - 07/12/2023 [facility] Diagnostic Imaging Department [address] [place] [id number] Patient: ROCKY KAUFFMAN Angie /Age/Sex: 1955 - 67 - F Unit#: [id number] [facility]Ordering [facility] Ordering Physician: ADRIENNE NEW MD Benjamin Screening Digital - 01/05/23 - 957 Report Status:Signed EXAM: Benjamin Screening Digital EXAM DATE AND TIME: 01/05/2023 9:59 AM HISTORY: Annual screening, COMPARISON: 01/01/2022, 12/04/2020, 10/25/2008, 09/17/2003 TECHNIQUE: Bilateral digital breast tomosynthesis was performed in the CCand MLO projections. Computer aided detection with [x+1] 3D 3.1was employed. TISSUE DENSITY: b. There [...] cc spotcompression tomography. 3341F, 7025F Dictating Physician: NACHO BARBA MD Electronically Signed by: NACHO BARBA MD Dic Date/Time: 01/05/23 1051 Sign date/Time: 01/05/23 1058 Adrienne New MD IMG BI PROCEDURES Final Result from Last 3 Months or Most Recently Relevant to Health Maintenance
[2024-09-21 14:09] LABS: Basophils Absolute Auto 0.1 X10*3/uL (0.0-0.2); Basophils Percent Auto 1.5 % (0-2); Eosinophils Absolute Auto 0.5 X10*3/uL (0.0-0.4); Eosinophils Percent Auto 10.2 % (0-4); Hematocrit 38.7 % (37.0-47.0); Imm Gran Abs Auto 0.01 X10*3/uL (0.00-0.03); Imm Gran Pct Auto 0.2 % (0.0-0.4); Lymphocytes Percent Auto 19.7 % (20-40); Mean Corpuscular HGB Conc 33.6 g/dl (31.0-35.0); Mean Corpuscular Hemoglobin 31.7 pg (27.0-33.0); Mean Corpuscular Volume 94.4 fL (80.0-98.0); Mean Platelet Volume 11.1 fL (9.4-12.3); Monocytes Absolute Auto 0.6 X10*3/uL (0.1-1.2); Monocytes Percent Auto 10.5 % (2-11); Neutrophils Percent Auto 57.9 % (45-73); Platelet Count 237 X10*3/uL (160-400); Red Cell Distribution Width 12.4 % (11.0-16.0); White Blood Count 5.2 X10*3/uL (4.8-10.8)
[2024-09-21 14:51] LABS: Erythrocyte Sedimentation Rate 9 MM/HR (0-20)
[2024-09-26 19:53] LABS: IgA 153 mg/dL (70-320); IgG 875 mg/dL (600-1540); IgM 82 mg/dL (50-300)
[2024-09-27 02:43] LABS: Immunoglobulin E 281 kU/L (<OR=114)
== END 2024-09-21 13:04 | disposition home or self-care (01) ==
LOC: HO.LAB 13:03
PROVIDERS: PCP Internal Medicine; Visit Provider Hospitalist
DX: R05.3 Chronic cough (principal); J45.40 Moderate persistent asthma, uncomplicated; T78.40XA Allergy, unspecified, initial encounter
CPT/HCPCS: 36415; 82784; 82785; 85025; 85652

== ENCOUNTER 2025-01-15 08:40 | Outpatient (AMB) | payer BC, SELFPAY ==
--- OUTSIDE RECORDS SUMMARY | 2025-01-10 06:00 | XMS_ITS ---
Author Organization [facility] Address [address] [place] [address] Care Team Providers Care Residential Real Estate Appraiser Name Role Phone YOVANIANETTE CARMONA Primary Care Provider Judith Rodriguez Unavailable [phone] Allergies No Known Allergies Results Component Value Reference Range Notes [id number] IGP No Culture 30 Plus Reviewed date:01/11/2025 04:40:16 PM Interpretation: Performing Lab:[facility], [address], [address], [place], Phone - [phone], Director - [facility] Notes/Report: Clinical Information:CERV/VAG [id number] Dates / Results....12/09/2021 NIL NEG HPV Other..............Post Menopausal No. of containers..01 ThinPrep Vial DIAGNOSIS: NEGATIVE FOR IN TRAEPITHELIAL LESION OR MALIGNANCY. Specimen adequacy: Satisfactory for evaluation. Endocervical and/or squamous metaplastic cells (endocervical component) are present. Clinician provided ICD10: Z01.419 Z11.51 Performed by: Adrian Glasgow , Wrapper Dipper (ASCP) . . Note: The Pap smear is a screening test designed to aid in the detection of premalignant and malignant conditions of the uterine cervix. It is not a diagnostic procedure and should not be used as the sole means of detecting cervical cancer. Both false-positive and false-negative reports do occur. . Test Methodology: This liquid based ThinPrep(R) pap test was screened with the use of an image guided system. HPV Aptima Negative Negative This nucleic acid amplification test detects fourteen high-risk HPV types (16,18,31,33,35,39,45,51,52,56,5 8,59,66,68) without differentiation. HPV Genotype Reflex Criteria not met, HPV Genotype not performed. PDF Report Reviewed date:01/11/2025 04:39:39 PM Interpretation: Performing Lab:[facility] [place], [address], [address], [place], Phone - [phone], Director - [facility] Notes/Report: Clinical Information:CERV/VAG [id number] Dates / Results....12/09/2021 NIL NEG HPV Other..............Post Menopausal No. of containers..01 ThinPrep Vial REASON FOR VISIT Annual SALES SUPPORT ADVISOR Physical, Annual SALES SUPPORT ADVISOR Physical 60-85+ Medications Medication SIG (Take, Route, Frequency, Duration) Notes Start Date End Date Status Calcium 1 tab Oral; Duration : 14 days chews Active Airborne - as directed Orally Active Fosamax 70 MG 1 tablet 30 minutes before the first food, beverage or medicine of the day with plain water Orally Active Ativan 1 MG 1 tablet Orally Twic e a day as needed; Duration: 30 days 01/02/2020 Active Meloxicam 15 MG TAKE 1 TABLET BY CHAPARRO TH EVERY DAY Oral; Duration: 30 Active Prometrium 100 MG 1 capsule at bedtime Orally Once a day; Duration: 90 days 01/10/2025 Active Estradiol 0.0375 MG/24HR 1 patch to skin Transdermal ONCE A WEEK; Duration: 90 days 01/10/2025 Active Yuvafem 10 MCG 1 tablet Vaginal TWI CE A WEEK; Duration: 90 days 12/31/2024 Active Prometrium 100 MG 1 capsule at bedtime Orally Once a day; Duration: 90 days 12/31/2024 Active Estradiol 0.0375 MG/24HR 1 patch to skin Transdermal ONCE A WEEK; Duration: 90 days 12/31/2024 Active Xyzal 5 MG 1 tablet in the even ing Orally Once a day; Duration: 30 day(s) Active Social History Tobacco Use: Social History Observation Description Date Details (start date - stop date) Never Smoker NA - NA Sexual History Question Answer Notes Had sex in the past 12 months (vaginal, oral, or anal)? No AUDIT-C (Standard) Question Answer Notes Did you have a drink contain ing alcohol in the past year? Yes How often did you have a dri nk containing alcohol in the past year? Monthly or less (1 point) How many drinks did you have on a typical day when you were drinking in the past year? 1 or 2 drinks (0 point) How often did you have six o r more drinks on one occasion in the past year? Never (0 point) Points 1 Interpretation Negative Tobacco Control (Standard) Question Answer Notes Tobacco use: Nonsmoker Problems Problem Type SNOMED Code ICD Code Onset Dates Problem Status W/U Status Risk Notes Problem Fibromyalgia (743246596) Fibromyalgia (M79.7) Active confirmed Vital Signs Temperature 98.2 degrees Fahrenheit 01/11/20 25 Blood pressure systolic 106 mm Hg 01/11/20 25 Blood pressure diastolic 64 mm Hg 025 Height 60.5 in 01/10/2025 Weight 113 lbs 01/10/2025 BMI 21.7 kg/m2 01/10/2025 Encounters Encounter Location Date Provider Diagnosis [address] [address] 01/10/2025 Judith Sharma Encounter for gynecological examination (general) (routine) without abnormal findings Z01.419 ; Encounter for screening for human papillomavirus (HPV) Z11.51 ; Encounter for screening mammogram for malignant neoplasm of breast Z12.31 ; Hormone replacement therapy Z79.890 ; Age-related osteoporosis without current pathological fracture M81.0 and Dense breasts, unspecified R92.30 Assessments Encounter Date Diagnosis (ICD Code) Assessment Notes Treatment Notes Treatment Clinical Notes Section Notes 01/10/2025 Encounter for gynecological examination (general) (routine) without abnormal findings (ICD-10 - Z01.419) PAP TEST WAS OBTAINED. 01/10/2025 Encounter for screening for human papillomavirus (HPV) (ICD-10 - Z11.51) HPV TYPING WAS ORDERED WITH PAP SMEAR. 01/10/2025 Encounter for screening mammogram for malignant neoplasm of breast (ICD-10 - Z12.31) REGULAR MAMMOGRAMS AND SBE'S WERE RECOMMENDED. 01/10/2025 Hormone replacement therapy (ICD-10 - Z79.890) DISCUSSED BENEFITS AND RISKS OF HRT. SHE HAS NO CONTRAINDICATIONS BENEFITS OUTWEIGH RISKS IN THIS PAT. INCREASE ESTRADIOL PATCH 0.0375 MG PATCHES TO ONCE WEEKLY APPLICATION. CONTINUE PROMETRIUM 100 MG NIGHTLY. 01/10/2025 Age-related osteoporosis without current pathological fracture (ICD-10 - M81.0) DISCUSSED OSTEOPOROSIS AND ITS IMPACT ON HER HEALTH. ADEQUATE CALCIUM AND VIT D. WEIGHT BEARING EXERCISES. DISCUSSED HOW ESTROGEN HELPS BONE HEALTH. INCREASE ESTRADIOL PATCH DOSE. OSTE PRECAUTIONS. REPEAT BMD IN 2025. 01/10/2025 Dense breasts, unspecified (ICD-10 - R92.30) DISCUSSED DENSE BREASTS ON MAMMOGRAM AND ITS IMPLICATIONS. 3D MAMMOGRAMS WERE RECOMMENDED. Plan Of Treatment Medication Medication Name Sig Start Date Stop Date Notes Prometrium 100 MG 1 capsule at bedtime Orally Once a day; Duration: 90 days 01/10/2025 Estradiol 0.0375 MG/24HR 1 patch to skin Transdermal ONCE A WEEK; Duration: 90 days 01/10/2025 Treatment Notes Assessment Notes Encounter for gynecological examination (general) (routine) without abnormal findings PAP TEST WAS OBTAINED. Encounter for screening for human papillomavirus (HPV) HPV TYPING WAS ORDERED WITH PAP SMEAR. Encounter for screening mamm ogram for malignant neoplasm of breast REGULAR MAMMOGRAMS AND SBE'S WERE RECOMMENDED. Hormone replacement therapy DISCUSSED BENEFITS AND RISKS OF HRT. SHE HAS NO CONTRAINDICATIONS BENEFITS OUTWEIGH RISKS IN THIS PAT. INCREASE ESTRADIOL PATCH 0.0375 MG PATCHES TO ONCE WEEKLY APPLICATION. CONTINUE PROMETRIUM 100 MG NIGHTLY. Age-related osteoporosis wit hout current pathological fracture DISCUSSED OSTEOPOROSIS AND ITS IMPACT ON HER HEALTH. ADEQUATE CALCIUM AND VIT D. WEIGHT BEARING EXERCISES. DISCUSSED HOW ESTROGEN HELPS BONE HEALTH. INCREASE ESTRADIOL PATCH DOSE. OSTE PRECAUTIONS. REPEAT BMD IN 2025. Dense breasts, unspecified DISCUSSED DENSE BREASTS ON MAMMOGRAM AND ITS IMPLICATIONS. 3D MAMMOGRAMS WERE RECOMMENDED. Pending Test Test Name Order Date MAMMOGRAM, SCREENING 01/10/2025 MM Digital Mammo Screening 01/10/2025 Next Appt Details Follow Up: 1 Year, Reason: Provider Name:Judith mcclure, 01/13/2026 10:20:00 AM, [address], [address], [place], [address], Progress Notes * ROCKY KAUFFMANDOB:1955 (69 yo F)Acc No.[id number]:01/10/2025 PROGRESS NOTES Patient: Ryanne SHREYASRogerROCKY MERCER Appointment Provider: Hattie Sharma M.D. :1955 A ge:69 Y S ex:Female Date:01/10/2025 Address:[address] [place], [place] [id number] Pcp:ANETTE PINA Subjective: * Chief Complaints: * Annual SALES SUPPORT ADVISOR PhysicalAnnual SALES SUPPORT ADVISOR Physical 60-85+ * HPI: N ew/Follow-up Patient Consult: PAT ENTERED MENOPAUSE IN 2013. WE ARE WEANING PAT OFF HRT BUT SHE IS HAVING A MISERABLE TIME. SHE IS PRESENTLY ON ESTRADIOL PATCH 0.0375 MG Q 2 WEEKS AND PROMETRIUM 100 MG DAILY. SHE HAS HOT FLASHES, NIGHT SWEATS, INSOMNIA. PAT HAS BEEN MORE THAN 30 YEARS AND THEY ARE NOT SEXUALLY ACTIVE. HER LAST MAMMOGRAM DONE IN FEB 2024 SHOWED DENSE BREASTS AND WAS NORMAL. SHE HAS NO FAMILY HX OF BREAST, OVARIAN, COLON OR UTERINE CA. HER LAST PAP TEST IN 2021 WAS NEGATIVE AND HPV NEGATIVE. HER LAST BMD IN 2023 SHOWED OSTEOPOROSIS WITH T-SCORE OF -2.7 AT THE FEMORAL NECK. THIS WAS -2.6 IN 2020. OSTEO WORK UP WAS NORMAL. SHE HAS NO HX OF FRACTURES. SHE HAD A COLONOSCOPY DONE IN 2014. A nnual: Patient presents for annual exam, ages 60-85, postmenopausal. General Health Maintenance: C urrent breast complaints: n o breast pain, mass, discharge, or skin changes U rinary problems: p atient reports no urinary health problems or bowel health problems C alcium intake: t akes adequate calcium via diet and supplementation S ignificant SALES SUPPORT ADVISOR problems: n o significant lamp developer symptoms or problems * ROS: g eneral: no c hest pain. n o p alpitations. n o h eadache. n o c ough. n o s hortness of breath. n o f ever. n o u nexplained weight loss. n o n ausea/vomiting. n o c hange in bowel movements. n o blood in stool. n o g enitourinary complaints. n o s kin complaints. ? 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 S exual activity n ot currently sexually active. L ast Pap Smear: NIL, NEG HPV, 08/01/2016, neg, NEG HRHPV. M ammogram: < 50% density (Diagnostic), 01/05/23 < 50% density, 01/01/22 50-75% density, 12/04/2020 [facility] ,10/25/18 50-75% density, 08/23/17 50-75% density, 08/18/2016 50- 75% density, , normal. L MP and menses M brock. B irth Control: b ilateral tubal ligation. C olonoscopy 2007. B one Density: Osteoporosis, 12/04/2020, 08/23/17, 08/18/11. G YN HISTORY MISC. Risk Assessment Form Mailed to Patient to Complete and Mail Back to Office. * OB History: T otal pregnancies 4 . T otal living children 3 . N VD 3 . * Surgical History: B ilateral Tubal Ligation Colonoscopy Nasal Septum Surgery Oral Sugery [place] Teeth Right Knee Surgery - Meniscus Left Knee Replacement 10/09/19Right Knee Replacement 11/23/19BASAL CELLM REMOVAL 04/2023 * Hospitalization/Major Diagno stic Procedure: 3 Vaginal Deliveries See Surgical Hx * Family History: M other: 93 yrs, Asthma, Vascular Problems. F ather: 88 yrs, COPD. 1 sister(s) - healthy. . Sister: , Celiacs Disease. * Social History: T obacco Use: T obacco Control (Standard) T obacco use: N onsmoker S exual History: S exual History H ad sex in the past 12 months (vaginal, oral, or anal)? N o Details of Sexual History A re you sexually active? N o D rugs/Alcohol: D rugs H ave you used drugs other than those for medical reasons in the past 12 months? N o M iscellaneous: C hildren: yes, 3. Domestic violence: no. Exercise: yes, Cardio. Home smoke detector use: yes. Living with: spouse - [place]. Marital status: . Natural support system: yes. 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 Pets: cats: 3 dogs: 2. Sexual abuse: no. Sexually active: no, monogamous relationship. Verbal abuse: no. D rug/Alcohol: A CHRIS-C (Standard) D id you have a drink containing alcohol in the past year? Y es H ow often did you have a drink containing alcohol in the past year? M onthly or less (1 point) H ow many drinks did you have on a typical day when you were drinking in the past year? 1 or 2 drinks (0 point) H ow often did you have six or more drinks on one occasion in the past year? N ever (0 point) P oints 1 I nterpretation N egative * Medications: T akingFosamax 70 MG Tablet 1 tablet 30 minutes before the first food, beverage or medicine of the day with plain water Orally Airborne - Tablet Chewable as directed Orally Calcium 1 tab Oral , Notes to Pharmacist: chewsMeloxicam 15 MG Tablet TAKE 1 TABLET BY MOUTH EVERY DAY Oral Ativan 1 MG Tablet 1 tablet Orally Twice a day as needed Xyzal 5 MG Tablet 1 tablet in the evening Orally Once a day Estradiol 0.0375 MG/24HR Patch Weekly 1 patch to skin Transdermal ONCE A WEEK Prometrium 100 MG Capsule 1 capsule at bedtime Orally Once a day Yuvafem 10 MCG Tablet 1 tablet Vaginal TWICE A WEEK Taking Fosamax 70 MG Tablet 1 tablet 30 minutes before the first food, beverage or medicine of the day with plain water Orally Taking Airborne - Tablet Chewable as directed Orally Taking Calcium 1 tab Oral , Notes to Pharmacist: chewsTaking Meloxicam 15 MG Tablet TAKE 1 TABLET BY MOUTH EVERY DAY Oral Taking Ativan 1 MG Tablet 1 tablet Orally Twice a day as needed Taking Xyzal 5 MG Tablet 1 tablet in the evening Orally Once a day Taking Estradiol 0.0375 MG/24HR Patch Weekly 1 patch to skin Transdermal ONCE A WEEK Taking Prometrium 100 MG Capsule 1 capsule at bedtime Orally Once a day Taking Yuvafem 10 MCG Tablet 1 tablet Vaginal TWICE A WEEK DiscontinuedProgesterone 100 MG Capsule 1 capsule Orally Every night , Notes to Pharmacist: Only dispense 30 day supply. Supposed to be coming off this. Will discuss with her at her December appointment. TyEstradiol 0.0375 MG/24HR Patch Twice Weekly 1 patch to skin Transdermal TWICE WEEKLY Prometrium 100 MG Capsule 1 capsule at bedtime Orally Once a day Estradiol 0.0375 MG/24HR Patch Weekly 1 patch to skin Transdermal Once a week, Start Tapering Down Estradiol 0.0375 MG/24HR Patch Weekly 1 patch to skin to clean, dry skin Transdermal ONCE A WEEK Prometrium 100 MG Capsule 1 capsule at bedtime Orally Once a day Yuvafem 10 MCG Tablet USE 1 TABLET VAGINAL TWICE A WEEK Estradiol 0.0375 MG/24HR Patch Twice Weekly 1 patch to skin Transdermal Two times a Week Prometrium 100 MG Capsule 1 capsule at bedtime Orally Once a day Bactrim DS 800-160 MG Tablet 1 tablet Orally TWICE A DAY Bactrim DS 800-160 MG Tablet 1 tablet Orally TWICE A DAY Medication List reviewed and reconciled with the patientDiscontinued Progesterone 100 MG Capsule 1 capsule Orally Every night , Notes to Pharmacist: Only dispense 30 day supply. Supposed to be coming off this. Will discuss with her at her December appointment. TyDiscontinued Estradiol 0.0375 MG/24HR Patch Twice Weekly 1 patch to skin Transdermal TWICE WEEKLY Discontinued Prometrium 100 MG Capsule 1 capsule at bedtime Orally Once a day Discontinued Estradiol 0.0375 MG/24HR Patch Weekly 1 patch to skin Transdermal Once a week, Start Tapering Down Discontinued Estradiol 0.0375 MG/24HR Patch Weekly 1 patch to skin to clean, dry skin Transdermal ONCE A WEEK Discontinued Prometrium 100 MG Capsule 1 capsule at bedtime Orally Once a day Discontinued Yuvafem 10 MCG Tablet USE 1 TABLET VAGINAL TWICE A WEEK Discontinued Estradiol 0.0375 MG/24HR Patch Twice Weekly 1 patch to skin Transdermal Two times a Week Discontinued Prometrium 100 MG Capsule 1 capsule at bedtime Orally Once a day Discontinued Bactrim DS 800-160 MG Tablet 1 tablet Orally TWICE A DAY Discontinued Bactrim DS 800-160 MG Tablet 1 tablet Orally TWICE A DAY Medication List reviewed and reconciled with the patient * Allergies: N .K.D.A.no[Allergies Verified] Objective: * Vitals: H t: 60.5 in, Wt: 113 lbs, BMI:21.7Index, BP: 106/64 mm Hg, Temp: 98.2 F. * Examination: G eneral Exam: CONSTITUTIONAL: G eneral Appearance: a lert, in no acute distress, normal, well nourished NECK/THYROID: I nspection/Palpation: n ormal T hyroid: n ormal size and shape RESPIRATORY: A uscultation: clear to auscultation bilaterally, Respiratory Effort: normal. CARDIOVASCULAR: A uscultation: regular rate and rhythm.? BREAST, Right: I nspection/Palpation: n o discharge, no masses present, no nipple retraction, no skin changes, no skin dimpling, no tenderness, no lymphadenopathy, no axillary mass, no axillary tenderness BREAST, Left: I nspection/Palpation: n o discharge, no masses present, no nipple retraction, no skin changes, no skin dimpling, no tenderness, no lymphadenopathy, no axillary mass, no axillary tenderness GASTROINTESTINAL: A bdomen: n o masses, nontender, nondistended L iver and Spleen: n ormal H ernias: n o hernias present, no inguinal adenopathy MUSCULOSKELETAL: I nspection/Palpation: n o clubbing, cyanosis, or edema SKIN: S kin: n ormal NEURO/PSYCH: O rientation: t isaac , place, person M ood/Affect: n ormal G enitourinary: EXTERNAL GENITALIA: E xternal Genitalia: n ormal, no lesions VAGINA: V agina: n ormal appearance, no abnormal discharge, no lesions BLADDER: B ladder: n o mass, nontender URETHRA: U rethra: n o erythema or lesions present CERVIX: C ervix: n o lesions, nontender UTERUS: U terus: n ontender, normal contour, normal mobility, normal size ADNEXA: A dnexa: n o masses, no tenderness ANUS AND PERINEUM: A nus/Perineum: v isually normal Assessment: * Assessment: 1. E ncounter for gynecological examination (general) (routine) without abnormal findings - Z01.419 2 . E ncounter for screening for human papillomavirus (HPV) - Z11.51 & #160; 3 . E ncounter for screening mammogram for malignant neoplasm of breast - Z12.31 ? 4 . H ormone replacement therapy - Z79.890 5 . A ge-related osteoporosis without current pathological fracture - M81.0 6 . D ense breasts, unspecified - R92.30 Plan: * Treatment: Notes: PAP TEST WAS OBTAINED.??2.?Encounter for screening for human papillomavirus (HPV)?LAB: [id number] IGP No Culture 30 Plus (Collection Date & Time - 01/10/2025 10:37 AM)* CERV/VAG Notes: HPV TYPING WAS ORDERED WITH PAP SMEAR.??3.?Encounter for screening mammogram for malignant neoplasm of breast?Imaging: MM Digital Mammo Screening Notes: REGULAR MAMMOGRAMS AND SBE'S WERE RECOMMENDED.??4.?Hormone replacement therapy? Start Estradiol Patch Weekly, 0.0375 MG/24HR, 1 patch to skin, Transdermal, ONCE A WEEK, 90 days, 12 Patch, Refills 3;?Start Prometrium Capsule, 100 MG, 1 capsule at bedtime, Orally, Once a day,90 days, 90 Capsule, Refills 3.?? Notes: DISCUSSED BENEFITS AND RISKS OF HRT. SHE HAS NO CONTRAINDICATIONS BENEFITS OUTWEIGH RISKS INTHIS PAT. INCREASE ESTRADIOL PATCH 0.0375 MG PATCHES TO ONCE WEEKLY APPLICATION. CONTINUE PROMETRIUM 100 MG NIGHTLY. ??5.?Age-related osteoporosis without current pathological fracture? Notes: DISCUSSED OSTEOPOROSIS AND ITS IMPACT ON HER HEALTH. ADEQUATE CALCIUM AND VIT D. WEIGHT BEARING EXERCISES. DISCUSSED HOW ESTROGEN HELPS BONE HEALTH. INCREASE ESTRADIOL PATCH DOSE. OSTE PRECAUTIONS. REPEAT BMD IN 2025.??6.?Dense breasts, unspecified? Notes: DISCUSSED DENSE BREASTS ON MAMMOGRAM AND ITS IMPLICATIONS. 3D MAMMOGRAMS WERE RECOMMENDED.?? * Imaging: * I maging: MAMMOGRAM, SCREENING * Procedure Codes: * Preventive Medicine: YOUR PREVENTIVE WELLNESS PLAN: O steoporosis prevention C alcium, D, strength training. B reast Cancer Screening (Mammogram): a nnually. C ervical Cancer Screening (Pap Smear): q 3 years with HPV screen. C olorectal Cancer Screening: q 10 years. * Follow Up: 1 Year * Images: Billing Information: * Visit Code: [id number] Preventive Care Est Pt. Age 65 and over. * Procedure Codes: * Sign off status: Completed true * Appointment Provider: Hattie Sharma M.D. Date: 0 01/10/2025 Generated for Valorie velarde/Darwin/Susanitting on: 0 01/15/2025 08:56 AM EDT History and Physical Notes * HPI (History of Present Illness) Category Sub-Category Detail Notes Category Not es New/Follow-up Patient Consult PAT ENTERED MENOPAUSE IN 2013. WE ARE WEANING PAT OFF HRT BUT SHE IS HAVING A MISERABLE TIME. SHE IS PRESENTLY ON ESTRADIOL PATCH 0.0375 MG Q 2 WEEKS AND PROMETRIUM 100 MG DAILY. SHE HAS HOT FLASHES, NIGHT SWEATS, INSOMNIA. HARIKA HAS BEEN MORE THAN 30 YEARS AND THEY ARE NOT SEXUALLY ACTIVE. HER LAST MAMMOGRAM DONE IN FEB 2024 SHOWED DENSE BREASTS AND WAS NORMAL. SHE HAS NO FAMILY HX OF BREAST, OVARIAN, COLON OR UTERINE CA. HER LAST PAP TEST IN 2021 WAS NEGATIVE AND HPV NEGATIVE. HER LAST BMD IN 2023 SHOWED OSTEOPOROSIS WITH T-SCORE OF -2.7 AT THE FEMORAL NECK. THIS WAS -2.6 IN 2020. OSTEO WORK UP WAS NORMAL. SHE HAS NO HX OF FRACTURES. SHE HAD A COLONOSCOPY DONE IN 2014. Annual General Health Maintenance: Current breast complaints:: no breast pain, mass, discharge, or skin changes Urinary problems:: patient r eports no urinary health problems or bowel health problems Calcium intake:: takes adequ ate calcium via diet and supplementation Significant SALES SUPPORT ADVISOR problems:: n o significant lamp developer symptoms or problems Examination Category Sub-Category Detail Notes Category Not es General Exam CONSTITUTIONAL: General Appearan ce:: alert, in no acute distress, normal, well nourished NECK/THYROID: Thyroid:: normal size and shape Inspection/Palpation:: normal RESPIRATORY: Auscultation: clear to auscultation bilaterally, Respiratory Effort: normal CARDIOVASCULAR: Auscultation: regula r rate and rhythm GASTROINTESTINAL: Hernias:: no hernias present, no inguinal adenopathy Liver and Spleen:: normal Abdomen:: no masses, nontender, nondiste nded MUSCULOSKELETAL: Inspection/Palpation:: no clubb ing, cyanosis, or edema SKIN: Skin:: normal NEURO/PSYCH: Mood/Affect:: normal Orientation:: time , place, person BREAST, Right: Inspection/Palpation :: no discharge, no masses present, no nipple retraction, no skin changes, no skin dimpling, no tenderness, no lymphadenopathy, no axillary mass, no axillary tenderness BREAST, Left: Inspection/Palpation :: no discharge, no masses present, no nipple retraction, no skin changes, no skin dimpling, no tenderness, no lymphadenopathy, no axillary mass, no axillary tenderness Genitourinary EXTERNAL GENITALIA: External Genitalia:: nor mal, no lesions VAGINA: Vagina:: normal appearance, no a bnormal discharge, no lesions BLADDER: Bladder:: no mass, nontender URETHRA: Urethra:: no erythema or lesions present CERVIX: Cervix:: no lesions, nontender UTERUS: Uterus:: nontender, normal conto ur, normal mobility, normal size ADNEXA: Adnexa:: no masses, no tendernes s ANUS AND PERINEUM: Anus/Perineum:: visually norm al
[2025-01-15 08:44] VITALS: BP 96/66; PULSE 80; O2SAT 96; BMI 21.7
--- NOTE | 2025-01-15 08:44 | A.OFFVIS_ITS ---
Vital Signs 01/15/25 08:44 Height 5 ft 1 in Weight 114 lb 10.246 oz BMI 21.7 BP 96/66 Blood Pressure Location Lt brachial Position Sitting Pulse 80 Pulse Source Pulse Oximeter Pulse Oximetry (%) 96 Oxygen Delivery Method Room Air Intake Visit Reasons: Asthma Accompanied by: Self / Same As Patient Allergies No Known Allergies Allergy (Verified 01/15/25 08:46) HPI HPI Asthma: Details: Elizabeth is here for an office visit and Dupixent teach Elizabeth was educated on hand washing, injection preparation, administration, and disposal.? She was able to return demonstrate proper technique for hand washing, injection preparation, administration and disposal of needle and states she has no questions at this time. Medication Dupixent 300mg/2mL autoinjector (patient?s own meds) Loading dose of 600mg given by the patient in 2 SQ injections; injection #1 R abdomen;? injection #2 L abdomen? Lot# [id number] expires 02/03/2026. Patient aware her next injection is in 15 days. Nurse visit only.? HPI Comments Details: The patient is a 69 year woman with known history of asthma and allergies. Apparently her respiratory symptoms have been getting worse. The patient had been followed closely by Allergy in [place] for many years. She received allergy shots for multiple things throughout her life. And they were very effective in beneficial for many years. 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 She did have allergy testing done in I do not have the results but apparently were not as significant. She started developing worsening cough nonproductive in nature moderate severity the last few months. She tried multiple inhalers including Breo and Wixela. Those were not helpful. Prior to that she had been on Advair that worked a little better. Her primary care doctor started her on Symbicort which seems to be working better for her. Her cough is better. She still complains of chest tightness and shortness of breath. Sometimes she feels hot flashes and she has not sure if his from menopause. She did undergo pulmonary function studies at [facility] back in July 2022. Her FEV1 to FVC was 66% consistent with an obstructive process and she did have a significant response to bronchodilators. She does feel the chest tightness at times. The patient has not had a chest x- ray. I do believe that is mainly due to bronchospasms and small airways d isease. Seems like she is responding well to the Symbicort. She then using it as needed at this time. Will go ahead and request additional blood work to assess her asthma phenotype. The patient also will benefit getting a chest x- ray. Will hold off on PFTs and she just had some. 02/10/2024 the patient is here for pulmonary follow-up visit. Overall the patient has been doing well. She has been using her respiratory therapy as prescribed. Has not required her any rescue therapy. She does still get short of breath when she is exercising or going up a flight of stairs. We did review her pulmonary function studies the patient still has an obstructive airway component. She has significant small airways disease. This is consistent with her diagnosis of asthma. He does not have great reversibility of the central airways however. She has not had a chest x-ray. there was an order pending. she can have that whenever able. The patient will start using her rescue inhaler prior to exercise to see if she can provide some increased bronchodilation prior to the exercise. The patient also be a good candidate for singular. Will go ahead and start that. Hopefully we can deescalate her inhaler cortical steroids o While on a steroid sparing agent. 09/21/2024 the patient is here for a pulmonary follow-up visit. She has not been feeling well since about May. She started developing worsening wheezing chest tightness and cough. She has been using her rescue inhaler multiple times a day. She continues on the maintenance inhaler Advair with partial response. She continues with Singulair at nighttime. She was not aware that she can use Zyrtec along with the Singulair which I explained to her that due to different allergy medications. We did review her blood work she does have significant eosinophilia and also elevations in the IgE because of her severe persistent allergic asthma. Based on the fact that she is optimized on therapy and she is requiring her inhaler on a regular basis and she requires frequent prednisone bursts will go ahead and start the patient on Dupixent. 01/15/2025 the patient is here for pulmonary follow-up visit. She has been having hard time with the breathing. She is having significant chest tightness and wheezing. The Trelegy has been helpful but then she starts getting hoarse and she does not like the adverse effects. Therefore after 5 days she has a hard time with it. She understands she has tried multiple other inhalers and this is probably the best when we can provide her. In the meantime she does have significant eosinophilic severe persistent asthma. The patient did qualify for Dupixent and she did pick it up although she has not started as of yet. She did bring it in so we were able to provide her with the 1st loading dose of 600 mg. She feels comfortable with it she is going to continue using it. So for now will continue with the current respiratory regimen. We can always consider switching her over to air supra for inhalers she can use as needed. But right now she still has significant wheezing on exam. Will see how she does with the medication hoping to hold off on the use of prednisone. In addition to that the patient will benefit from a nebulizer. She would like to hold off at this time but she can always call we can provide her 1 in order to administer albuterol. Will plan to follow-up in 3-4 months if she has any issues prior to this she will call for further recommendations. [facility] Medical History (Updated 09/24/24 @ 20:50 by Lasha Mac MD) Chronic allergic rhinitis Allergies Chronic cough Asthma Social History Patient Tobacco Use Status: Never used Tobacco Review of Systems Const Denies chills, Denies fatigue, Denies fever(s), Denies weight gain and Denies weight loss ENT Denies dizziness Card Denies chest pain, Denies leg edema, Denies lightheadedness, Denies palpitations, Reports dyspnea on exertion, Denies orthopnea and Denies other Resp Reports cough, Reports dyspnea on exertion and Reports wheezing GI Denies hematochezia and Denies change in stool character Musc Denies abnormal gait, Denies muscle weakness, Denies numbness, Denies radiating pain into limb and Denies tingling Neuro Denies abnormal gait, Denies dizziness, Denies numbness and Denies tingling Endo Denies fatigue and Denies palpitations Aller/Immun Reports wheezing Physical Exam Vital Signs: Last Vital Signs Pulse 80 01/15/25 08:44 BP 96/66 01/15/25 08:44 Pulse Ox 96 01/15/25 08:44 Oxygen Delivery Method Room Air 01/15/25 08:44 BMI result Body Mass Index 21.7 Const General: comfortable HEENT Head: Yes normocephalic Neck Neck: Yes supple Chest Chest palpation & inspection: normal inspection of the chest Resp Effort & Inspection: normal respiratory effort Auscultation: wheezes and diminished lung sounds Cardio Heart sounds: S1 normal heart sound present and S2 normal heart sound present GI Palpation (GI): Soft to palpation Skin General skin exam: no rashes or lesions noted Extrem General: Yes no clubbing, cyanosis or edema Assessment & Plan Assessment & Plan (1) Asthma: Code(s): J45.909 - Unspecified asthma, uncomplicated Category: Medical Qualifiers: Asthma complication type: uncomplicated Asthma persistence: persistent Asthma severity: moderate Qualified Code(s): J45.40 - Moderate persistent asthma, uncomplicated (2) Chronic cough: Code(s): R05.3 - Chronic cough Category: Medical (3) Allergies: Code(s): T78.40XA - Allergy, unspecified, initial encounter Category: Medical Qualifiers: Encounter type: initial encounter Qualified Code(s): T78.40XA - Allergy, unspecified, initial encounter (4) Chronic allergic rhinitis: Code(s): J30.9 - Allergic rhinitis, unspecified Category: Medical Plan Trelegy 200mcg daily Start dupixent Q2 weeks RASTA as needed Continue antihistamines as needed Singulair Nebulizer would be helpful, pt defered at this time F/U 3-4 months Coding Level of Care Code Est Pt Level 4 (42521) Complex EM visit Add On G2211 Diagnoses Moderate persistent asthma without complication J45.40 Asthma complication type: uncomplicated Asthma persistence: persistent Asthma severity: moderate Chronic cough R05.3 Allergy, initial encounter T78.40XA Encounter type: initial encounter Chronic allergic rhinitis J30.9 Time Spent (min) 18
--- OUTSIDE RECORDS SUMMARY | 2025-01-15 08:57 | XMS_ITS | Clinical Summary ---
Author Organization [facility] Address [address] [place] [address] Care Team Providers Care Umbrella Cutter Name Role Phone Unavailable Primary Care Provider [...] 2) 2007 Colorectal Cancer Screening: Colonoscopy 05/09/2022 Falls Risk Assessment 05/09/2022 Hepatitis C Screening 05/09/2022 Social Influencers of Health Screening 05/09/2022 COVID-19 Vaccine ( - 2023- season) 2024 Depression Screening 06/06/2024 Breast Cancer Screening 01/05/2025 01/06/20 23, 01/01/2022, 12/04/2020, Additional history exists Influenza Vaccine (#1) 2025 RSV Immunization Adult Patients (1 - [...] Procedure Name Priority Date/Time Associated Diagnosis Comments [facility] DEXA AXIAL SKELETON Routine 02/14/2024 3:57 PM EDT Age-related osteoporosis without current pathological fracture [facility] SCREENING DIGITAL Routine 01/05/2023 10:58 AM EDT Encounter for screening mammogram for malignant neoplasm of breast from Last 3 Months or Most Recently Relevant to Health Maintenance Results * [facility] DEXA AXIAL SKELETON (02/14/2024 3:57 PM EDT) Anatomical Region Laterality Modality Mammography 02/14/2024 1:51 PM EDT Narrative 02/14/2024 3:57 PM EDT [facility] Diagnostic Imaging Department [address] [place] [address] Patient: ROCKY KAUFFMAN Angie /Age/Sex: 1955 - 68 - F Unit#: [id number] [facility] Ordering Physician: JUDITH MERCER MD Benjamin Dexa Axial Skeleton - 02/14/241 Report Status:Signed History: Low estrogen state due to menopause. Personal history of fracture. Parent hip fracture. Rheumatoid arthritis. Comparison: 01/05/23 Findings: Bone densitometry is performed utilizing dual energy x-ray absorptiometry (DXA) in the KelDoc unit. The lumbar spine and proximal femora [...] previous study. The detailed DEXA report will be mailed to the referring physician's office. DualFemur FRAX: 10-year Probability of Fracture: Major Osteoporotic 45.0 percent Hip 10.1 percent. IMPRESSION: Osteoporosis. [id number] Dictating Physician: DIVINA YOUNG MD Electronically Signed by: DIVINA YOUNG MD Dic Date/Time: 02/14/24 1555 Sign date/Time: 02/14/24 155 Procedure Note Divina Young MD - 03/21/2024 [facility] Diagnostic Imaging Department [address] [place] [address] Patient: DALYROCKY D.O.B./Age/Sex: 1955 - 68 - F Unit#: [id number] Location/Status: [facility]/REG CLI Mnemonic[facility] Ordering Physician: JUDITH MERCER MD Benjamin Dexa Axial Skeleton - 02/14/24 - 4554 Report Status:Signed History: Low estrogen state due to menopause. Personal history offracture. Parent hip fracture. Rheumatoid arthritis. Comparison: 01/05/23 Findings: Bone densitometry is performed utilizing dual energy x-ray absorptiometry(DXA) in the KelDoc unit. The lumbar spine and proximal femora [...] 45.0 percent Hip 10.1 percent. IMPRESSION: Osteoporosis. [id number] Dictating Physician: DIVINA YOUNG MD Electronically Signed by: DIVINA YOUNG MD Dic Date/Time: 02/14/241554 Sign date/Time: 02/14/241556 us Judith Mercer MD IMG BI PROCEDURES Final Re sult * [facility] SCREENING DIGITAL (01/05/2023 10:58 AM EDT) Anatomical Region Laterality Modality Mammography 01/05/2023 9:13 AM EDT Narrative 01/05/2023 10:58 AM EDT [facility] Diagnostic Imaging Department [address] [place] [id number] Patient: ROCKY KAUFFMAN/Age/Sex: 1955 - 67 - F Unit#: [id number] Location/Status: [facility]/REG CLI Mnemonic/Ordering Site: [facility] Ordering Physician: ADRIENNE NEW MD Benjamin Screening Digital - 01/05/23 - 957 Report Status:Signed EXAM: Benjamin Screening Digital EXAM DATE AND TIME: 01/05/2023 9:59 AM HISTORY: Annual screening, COMPARISON: 01/01/2022, 12/04/2020, 10/25/2008, 09/17/2003 TECHNIQUE: Bilateral digital breast tomosynthesis was performed in the CC and MLO projections. Computer aided detection with [employer] 3D 3.1 was employed. TISSUE DENSITY: b. There are scattered areas of fibroglandular density. FINDINGS: Possible developing asymmetry in the right breast at 6 o'clock, mid depth, seen best on image 24 of the CC tomography. No suspicious finding in the left breast. IMPRESSION: Possible developing asymmetry in the right breast at 6 o'clock, mid depth, seen best on image 24 of the CC tomography. BI-RADS: Category 0: Incomplete - Need Additional Imaging Evaluation RECOMMENDATION(S): Recommend right breast diagnostic mammogram with right cc spot compression tomography. [id number], [id number] Dictating Physician: NACHO BARBA MD Electronically Signed by: NACHO BARBA MD Dic Date/Time: 01/05/23 1051 Sign date/Time: 01/05/23 1058 Procedure Note Nacho Barba MD - 07/12/2023 [facility] Diagnostic Imaging Department [address] [place] [id number] Patient: ROCKY KAUFFMAN /Age/Sex: 1955 - 67 - F Unit#: [id number] Location/Status: [facility]/REG CLI Mnemonic/Ordering Site: [facility] Ordering Physician: ADRIENNE NEW MD Benjamin Screening Digital - 01/05/23 - 58 Report Status:Signed EXAM: Benjamin Screening Digital EXAM DATE AND TIME: 01/05/2023 9:59 AM HISTORY: Annual screening, COMPARISON: 01/01/2022, 12/04/2020, 10/25/2008, 09/17/2003 TECHNIQUE: Bilateral digital breast tomosynthesis was performed in the CCand MLO projections. Computer aided detection with [employer] 3D 3.1was employed. TISSUE DENSITY: b. There [...] by: NACHO BARBA MD Dic Date/Time: 01/05/23 105 Sign date/Time: 01/05/23 1058 us Adrienne New MD IMG BI PROCEDURES Final Result from Last 3 Months or Most Recently Relevant to Health Maintenance
--- OUTSIDE RECORDS SUMMARY | 2025-01-15 08:57 | XMS_ITS | Clinical Summary ---
Author Organization Located Within [facility] Address [address] [place] [address] Phone Care Team Providers Care Book Binder Name Role Phone Linsey Webber MD Primary Care Provider [phone]- [phone] Allergies Active Allergy Reactions Criticality Noted Date Comments Peanut Anaphylaxis High 10/05/2023 Shellfish Containing Products Anaphylaxis High 10/04 Tree Nuts Anaphylaxis High 10/05/2023 Medications albuterol 90 mcg/actuation inhaler TAKE 2 PUFFS INHALATION EVERY 6 HOURS NEEDED FOR WHEEZING/SHORTN ESS OF BREATH 4 Active budesonide-form oterol 80-4.5 mcg/actuation inhaler INHALE 2 PUFFS BY MOUTH 2 TIMES A DAY, RINSE MOUTH AND THROAT AFTER USE 4 Active carisoprodol (SOMA) 350 MG tablet TAKE 1 TABLET BY MOUTH 3 TIMES A DAY FXF NEEDED FOR PAIN 4 Active LORazepam (ATIVAN) 1 MG tablet TAKE 1/2-1 TABLET BY MOUTH 2 TIMES A DAY,X30 DAYS NEEDED FOR ANXIETY 4 Active mometasone (NASONEX) 50 mcg/actuation nasal spray 4 Active progesterone (PROMETRIUM) 100 mg capsule TAKE 1 CAPSULE BY MOUTH EVERY DAY AT BEDTIME FOR 90 DAYS 4 Active YUVAFEM [address] vaginally. 3 Active oe-gl-Q-theanin e-herb no.310 (AIRBORNE EVERYDAY STRESS AWAY) 1,000 mg-200 mg-360 mg PwPk Take by mouth. 3 Active calcium carbonate-vitam in D3 625 mg (250 elemental)-125 units Tab Active meloxicam (MOBIC) 15 MG tabletIndicatio ns:osteoarthrit is Take 15 mg by mouth daily as needed for pain (specific location in comments). Indications: joint damage causing pain and loss of function Active estradioL (CLIMARA) 0.0375 mg/[address] 1 patch onto the skin. 3 Active cetirizine (ZYRTEC) 10 MG tablet Take 10 mg by mouth daily. Active Active Problems Problem Noted Date Diagnosed Date Erosive osteoarthritis 10/05/2023 Assessment & Plan (01/05/2024 9:45 AM EDT): Erosive osteoarthritis most bothersome in both hands with angulated IP joints and pain at the base of both first CMC's. The joints are not warm or swollen. She does have increase in stiffness and pain with grasping. Gave her an IM injection of triamcinolone 80 mg to help with her stiffness and pain. She can continue with meloxicam as needed. Assessment & Plan (10/05/2023 9:09 AM EDT): Erosive osteoarthritis primarily in the hands. She is angulated IP nodes but no active synovitis. Continue with meloxicam as needed a few times a week. She can follow-up in 2 months if she wishes to have an intramuscular steroid injection which has helped her in the past. Family History Medical History Relation Comments COPD Father Relation Status Comments Father Mother Sister Social History Tobacco Use Types Packs/Day Years Used Date Smoking Tobacco: Never Smokeless Tobacco: Never Tobacco Cessation:Counseling Given: Not Answered Alcohol Use Standard Drinks/Week Comments Not Currently 0 (1 standard drink = 0.6 oz pur e alcohol) Education Answer Date Recorded Are you interested in more education? Not on ben e 09/02/2023 Are you concerned about learning? Not on file 09/02/2023 No 09/02/2023 No 09/02/2023 Digital Access Answer Date Recorded No 09/02/2023 No 09/02/2023 Reliable internet access at home? Not on file 09/02/2023 Device with a working camera? Not on file Comments Unknown Sex and Gender Information Value Date Recorded Sex Assigned at Not on file Legal Sex Female 6:39 PM EST Gender Identity Not on file Sexual Orientation Not on file Last Filed Vital Signs Vital Sign Reading Time Taken Comments Blood Pressure 100/50 01/05/2024 8:03 AM EDT Pulse 75 01/05/2024 8:03 AM EDT Temperature - - Respiratory Rate - - Oxygen Saturation 96% 01/05/2024 8:03 AM EDT Inhaled Oxygen Concentration - - Weight 54.4 kg (120 lb) 01/05/2024 8:03 AM EDT Height 152.4 cm (5') 01/05/2024 8:03 AM EDT Body Mass Index 23.44 01/05/2024 8:03 AM EDT Plan of Treatment Health Maintenance Due Date Last Done Comments LIPID PANEL 1955 DEPRESSION SCREENING 1969 HEPATITIS C SCREENING 1975 MAMMOGRAM 1997 COLOGUARD 2002 COLONOSCOPY 2002 COLORECTAL CANCER SCREENING 2002 FIT TEST 2002 FOBT 2002 SIGMOIDOSCOPY 2002 VIRTUAL COLONOSCOPY 2002 PNEUMOCOCCAL VACCINES (50+ years) (1 of 1 - PCV) 2007 ZOSTER VACCINES (1 of 2) 2007 OSTEOPOROSIS SCREENING INITI AL (ONE-TIME) 2022 COVID-19 VACCINE (3 - 2023-2 5 season) 2024 07/28/2020, 07/07/2020 Adult Td,Tdap Booster 12/02/2031 12/01/2021 RSV VACCINE (1 - 1-dose 75+ series) 2032 SMOKING STATUS SCREENING (On ce After 26 Yrs) Completed 01/05/2024 HEPATITIS A VACCINES Aged Out No long er eligible based on patient's age to complete this topic HIB VACCINES Aged Out No longer eligi ble based on patient's age to complete this topic MENINGOCOCCAL VACCINES (ACWY) Aged Out No longer eligible based on patient's age to complete this topic MENINGOCOCCAL VACCINES (B) Aged Out N o longer eligible based on patient's age to complete this topic Medical Devices Not on file Insurance [facility] Care Teams Book Binder Relationship Specialty Start Date End Date Linsey Webber MD [address] [address] PCP - General Internal Medicine 09/02/23 Additional Source Comments The information contained in this document represents components of the legal health record. It is not the complete legal health record.Located Within [facility]
--- OUTSIDE RECORDS SUMMARY | 2025-01-15 08:57 | XMS_ITS | Patient Health Record ---
[facility] Address [address] [place] [address] Care Team Providers Care Electronic Imager Name Role Phone Linsey Webber MD Primary Care Provider Unavailabl e Black, Kadie Unavailable [phone] Allergies Allergen (clinical drug ingredient) Drug/Non Drug Allergy documented on EMR Reaction Allergy Type Onset Date Status Shrimp Flavor Unknown Drug Allergy Act melany Results Component Value Reference Range Notes X ray : Foot, left 3V Reviewed date:01/04/2025 02:02:05 PM Interpretation:See Examination above Performing Lab: Notes/Report: See Examination above X ray : Foot, right 3V Reviewed date:01/04/2025 02:02:14 PM Interpretation:See Examination above Performing Lab: Notes/Report: See Examination above Reason For Referral No Information Medications Medication SIG (Take, Route, Fr equency, Duration) Notes Start Date End Date Status Meloxicam Active Yuvafem Active Trelegy Ellipta Acti ve Calcium + D Active Physical Therapy . . . 2-3x/week; Durat ion: 3-4 weeks 01/04/2025 Active Tylenol Active Progesterone Active Estradiol Active LORazepam Active Ventolin HFA Active Immunizations Vaccine Route Administration Date Status Comme nts Influenza Unknown 01/04/2025 Refused Social History Tobacco Use: Social History Observation Description Date Details (start date - stop date) Never Smoker NA - NA Tobacco use other than smoking: Question Answer Notes Are you an other tobacco user? No Tobacco Control (Standard) Question Answer Notes Tobacco use: Nonsmoker Additional Findings: Tobacco non-user Current no nsmoker AUDIT-C (Standard) Question Answer Notes Did you have a drink containing alcohol in the p ast year? 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) Active confirmed Problem Tightness of right gastrocnemius muscle (finding) (6616001244284610 6) Gastrocnemius equinus of right lower extremity (M62.461) Active confirmed Vital Signs Blood pressure diastolic 70 mm Hg 01/04/2025 Height 5 ft 1 in in 01/04/2025 Blood pressure systolic 120 mm Hg 01/04/2025 Weight 120 lbs 01/04/2025 BMI 22.67 kg/m2 01/04/2025 Procedures Procedure Date Ordered Date Performed Result Body Sit e 22124-BTZOYIG NAIL, 6 OR MORE 01/04/2025 N/A Encounters Encounter Location Date Provider Diagnosis [address] [address] 01/04/2025 Kadie Maurice Gastrocnemius equinu s of right lower extremity M62.461 ; Gastrocnemius equinus of left lower extremity M62.462 ; Pain in right toe(s) M79.674 ; Onychomycosis B35.1 ; Pain in left toe(s) M79.675 ; Pain in left foot M79.672 and Pain in right foot M79.671 [facility] [address] [place] [address] 10/31/2024 Kadie Maurice [address] [address] 01/04/2025 Kadie Maurice Assessments Encounter Date Diagnosis (ICD Code) Assessment Notes Treatment Notes Treatment Clinical Notes Section Notes 01/04/2025 Gastrocnemius equinus of left lower extremity (ICD-10 - M62.462) 01/04/2025 Gastrocnemius equinus of right lower extremity (ICD-10 - M62.461) 01/04/2025 Pain in right toe(s) (ICD-10 - M79.674) 01/04/2025 Onychomycosis (ICD-10 - B35.1) 01/04/2025 Pain in left toe(s) (ICD-10 - M79.675) 01/04/2025 Pain in left foot (ICD-10 - M79.672) 01/04/2025 Pain in right foot (ICD-10 - M79.671) Plan Of Treatment Pending Test Test Name Order Date [id number] NAIL, 6 OR MORE 01/04/2025 Next Appt Details Provider Name:Kadie Maurice , 03/20/2025 08:15:00 AM, [address] [facility], [place], [address], Insurance Providers Payer Name Payer Address Payer Phone Subscriber Number Group Number Insured Name Patient Relationship to Insured Coverage Start Date Coverage End Date [facility] [address] [place] [address] [phone] [id number] Elizabeth Jimenez Self - patient is the insured Medical (General) History Medical History History ICD Code asthma Back,Hip,and Knee pain Cataracts Osteoporosis raynauds disease Sciatica Measles Mumps Chicken pox Joint implants/screws Surgical History Surgery Date(Month/Year) knee replacement 2020 thumb joint 2022
== END 2025-01-15 09:12 | disposition home or self-care (01) ==
LOC: HO.HPS 08:41
PROVIDERS: PCP Internal Medicine; Visit Provider Hospitalist
DX: J45.40 Moderate persistent asthma, uncomplicated (principal); R05.3 Chronic cough; T78.40XA Allergy, unspecified, initial encounter; J30.9 Allergic rhinitis, unspecified
CPT/HCPCS: 99214

== ENCOUNTER 2025-05-01 08:26 | Outpatient (AMB) | payer BC, SELFPAY ==
--- OUTSIDE RECORDS SUMMARY | 2023-12-16 04:10 | XMS_ITS ---
Author Organization [facility] Address [address] [facility] [address] [place] [address] Care Team Providers Care Economic History Teacher Name Role Phone ANETTE PINA Primary Care Provider Judith Rodriguez Unavailable [phone] REASON FOR VISIT INTERVAL MED CK Encounters Encounter Location Date Provider Diagnosis [facility] [address] [address] 12/16/2023 Judith Sharma Plan Of Treatment Next Appt Details Provider Name:Judith mcclure, 01/13/2026 10:20:00 AM, [address] [facility], [facility] [address], [place], [address], Progress Notes * ROCKY KAUFFMANDOB:1955 (69 yo F)Acc No.[id number]:12/16/2023 Patient: ROCKY MERRILL Appointment Provider: Hattie Sharma M.D. :1955 A ge:68 Y S ex:Female Date:12/16/2023 Address:[address] [place], [place] [id number] Pcp:ANETTE PINA Subjective: * Chief Complaints: * 1 . INTERVAL MED CK. * Medical History: Objective: * Vitals: Assessment: Plan: * Treatment: * Images: Billing Information: * Visit Code: * Procedure Codes: * Electronic signature of Alysia Sharma MD on 05/01/2025 at 08:48 AM EST Sign off status: Pending * Appointment Provider: Hattie Sharma M.D. Date: 0 12/16/2023 Generated for Valorie velarde/Darwin/Judith on: 1 07/01/2024 08:48 AM EST
[2025-05-01 08:29] VITALS: BP 90/58; PULSE 77; O2SAT 100; BMI 21.9
--- NOTE | 2025-05-01 08:29 | A.OFFVIS_ITS ---
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 Apparently her respiratory symptoms have been getting worse. The patient had been followed closely by Allergy in [place] for many years. She received allergy shots for multiple things throughout her life. And they were very effective in beneficial for many years. Now she is dealing herself with a new ux visual designer. She did have allergy testing done in I do not have the results but apparently were not as significant. She started developing worsening cough nonproductive in nature moderate severity the last few months. She tried multiple inhalers including Breo and Wixela. Those were not helpful. Prior to that she had been on Advair that worked a little better. Her primary care doctor started her on Symbicort which seems to be working better for her. Her cough is better. She still complains of chest tightness and shortness of breath. Sometimes she feels hot flashes and she has not sure if his from menopause. She did undergo pulmonary function studies at [facility] back in July 2022. Her FEV1 to FVC was 66% consistent with an obstructive process and she did have a significant response to bronchodilators. She does feel the chest tightness at times. The patient has not had a chest x- ray. I do believe that is mainly due to bronchospasms and small airways disease. Seems like she is responding well to the Symbicort. She then using it as needed at this time. Will go ahead and request additional blood work to assess her asthma phenotype. The patient also will benefit getting a chest x- ray. Will hold off on PFTs and she just had some. 02/10/2024 the patient is here for pulmonary follow-up visit. Overall the patient has been doing well. She has been using her respiratory therapy as prescribed. Has not required her any rescue therapy. She does still get short of breath when she is exercising or going up a flight of stairs. We did review her pulmonary function studies the patient still has an obstructive airway component. She has significant small airways disease. This is consistent with her diagnosis of asthma. He does not have great reversibility of the central airways however. She has not had a chest x-ray. there was an order pending. she can have that whenever able. The patient will start using her rescue inhaler prior to exercise to see if she can provide some increased bronchodilation prior to the exercise. The patient also be a good candidate for singular. Will go ahead and start that. Hopefully we can deescalate her inhaler cortical steroids o While on a steroid sparing agent. 09/21/2024 the patient is here for a pulmonary follow-up visit. She has not been feeling well since about May. She started developing worsening wheezing chest tightness and cough. She has been using her rescue inhaler multiple times a day. She continues on the maintenance inhaler Advair with partial response. She continues with Singulair at nighttime. She was not aware that she can use Zyrtec along with the Singulair which I explained to her that due to different allergy medications. We did review her blood work she does have significant eosinophilia and also elevations in the IgE because of her severe persistent allergic asthma. Based on the fact that she is optimized on therapy and she is requiring her inhaler on a regular basis and she requires frequent prednisone bursts will go ahead and start the patient on Dupixent. 01/15/2025 the patient is here for pulmonary follow-up visit. She has been having hard time with the breathing. She is having significant chest tightness and wheezing. The Trelegy has been helpful but then she starts getting hoarse and she does not like the adverse effects. Therefore after 5 days she has a hard time with it. She understands she has tried multiple other inhalers and this is probably the best when we can provide her. In the meantime she does have significant eosinophilic severe persistent asthma. The patient did qualify for Dupixent and she did pick it up although she has not started as of yet. She did bring it in so we were able to provide her with the 1st loading dose of 600 mg. She feels comfortable with it she is going to continue using it. So for now will continue with the current respiratory regimen. We can always consider switching her over to air supra for inhalers she can use as needed. But right now she still has significant wheezing on exam. Will see how she does with the medication hoping to hold off on the use of prednisone. In addition to that the patient will benefit from a nebulizer. She would like to hold off at this time but she can always call we can provide her 1 in order to administer albuterol. Will plan to follow-up in 3-4 months if she has any issues prior to this she will call for further recommendations. 05/01/2025 the patient is here for pulmonary follow-up visit. Overall the patient is feeling about the same. She has not seen any significant improvement therefore she is going to stop it. She also does not tolerate the Trelegy. Causes her to have some rotational the mouth. Will go ahead and switch over to Breztri. She also has a spacer that will provide her some relief. She continues to have chest tightness and wheezing. Will provide her a nebulizer. The nebulizer will help her administer the medications further. If she still does not see any improvement with the Breztri then we can also switch her maintenance inhalers to nebulized solution. That may be the next option. But biologics unfortunately did not help her. She also triggers. She does have underlying allergies but she also has trach with exercise and also cold air. She also has triggers with postnasal drip. She is going to start her fluticasone nasal spray and continue with her nasal rinsing. The patient will continue the current therapy will follow-up in 3-4 months to see her progress. [facility] Medical History (Updated 09/24/24 @ 20:50 by Lasha Mac MD) Chronic allergic rhinitis Allergies Chronic cough Asthma Social History Patient Tobacco Use Status: Never used Tobacco Review of Systems Const Denies chills, Denies fatigue, Denies fever(s), Denies weight gain and Denies weight loss ENT Denies dizziness Card Denies chest pain, Denies leg edema, Denies lightheadedness, Denies palpitations, Reports dyspnea on exertion, Denies orthopnea and Denies other Resp Reports cough, Reports dyspnea on exertion and Reports wheezing GI Denies hematochezia and Denies change in stool character Musc Denies abnormal gait, Denies muscle weakness, Denies numbness, Denies radiating pain into limb and Denies tingling Neuro Denies abnormal gait, Denies dizziness, Denies numbness and Denies tingling Endo Denies fatigue and Denies palpitations Aller/Immun Reports wheezing Physical Exam Vital Signs: Last Vital Signs Pulse 77 05/01/25 08:29 BP 90/58 L 05/01/25 08:29 Pulse Ox 100 05/01/25 08:29 Oxygen Delivery Method Room Air 05/01/25 08:29 BMI result Body Mass Index 21.9 Const General: comfortable HEENT Head: Yes normocephalic Neck Neck: Yes supple Chest Chest palpation & inspection: normal inspection of the chest Resp Effort & Inspection: normal respiratory effort Auscultation: wheezes and diminished lung sounds Cardio Heart sounds: S1 normal heart sound present and S2 normal heart sound present GI Palpation (GI): Soft to palpation Skin General skin exam: no rashes or lesions noted Extrem General: Yes no clubbing, cyanosis or edema Assessment & Plan Assessment & Plan (1) Asthma: Code(s): J45.909 - Unspecified asthma, uncomplicated Category: Medical Qualifiers: Asthma complication type: uncomplicated Asthma persistence: persistent Asthma severity: moderate Qualified Code(s): J45.40 - Moderate persistent asthma, uncomplicated (2) Chronic cough: Code(s): R05.3 - Chronic cough Category: Medical (3) Allergies: Code(s): T78.40XA - Allergy, unspecified, initial encounter Category: Medical Qualifiers: Encounter type: initial encounter Qualified Code(s): T78.40XA - Allergy, unspecified, initial encounter (4) Chronic allergic rhinitis: Code(s): J30.9 - Allergic rhinitis, unspecified Category: Medical Plan stop Trelegy 200mcg daily start Breztri BID with spacer stop dupixent Q2 weeks, not working RASTA as needed Continue antihistamines as needed Singulair Nebulizer F/U 3-4 months Medications: New bpzeffpchj-blpblzkb-dsvuwkfeve 160-9-4.8 mcg/actuation (Breztri Aerosphere) 2 inhalations inhalation BID 10.7 grams 11RF 30 days mometasone 50 mcg/actuation (Allergy Nasal (mometasone)) administer into each nostril 2 sprays intranasal DAILY 17 grams 11RF 30 days benzonatate 200 mg PO BID PRN 60 caps 0RF cough 30 days Discontinued lzmkfmksqhf-hewiceqwr-nsgupgjd 200-62.5-25 mcg (Trelegy Ellipta) Discontinued Reason: Doctor's Order 1 inh inhalation DAILY 30 days 60 ea 12RF Coding Level of Care Code Complex visit Add On G2211 Diagnoses Moderate persistent asthma without complication J45.40 Asthma complication type: uncomplicated Asthma persistence: persistent Asthma severity: moderate Chronic cough R05.3 Allergy, initial encounter T78.40XA Encounter type: initial encounter Chronic allergic rhinitis J30.9 Time Spent (min) 17
--- OUTSIDE RECORDS SUMMARY | 2025-05-01 08:48 | XMS_ITS | Clinical Summary ---
Author Organization [facility] [address] [facility] Address [address] [place] [address] Phone Care Team Providers Care Home Health Clinical Supervisor Name Role Phone Linsey Webber MD Primary Care Provider [phone] Medications alendronate (FOSAMAX) 70 mg tablet Take 1 tablet (70 mg total) by mouth every 7 (seven) days. Take in the morning with a full glass of water, on an empty stomach, and do not take anything else by mouth or lie down for the next 30 min. Active mv-mn/C/glutami n/lysin/dkzq941 (AIRBORNE, ASCORBATE SODIUM, ORAL) Take by mouth. Active calcium carbonate (CALCIUM 500 ORAL) Take by mouth. Active meloxicam (MOBIC) 15 mg tablet Take 1 tablet (15 mg total) by mouth 1 (one) time each day. Active LORazepam (ATIVAN) 1 mg tablet Take 1 tablet (1 mg total) by mouth 2 (two) times a day if needed for anxiety. Max Daily Amount: 2 mg Active levocetirizine (XYZAL) 5 mg tablet Take 1 tablet (5 mg total) by mouth 1 (one) time each day in the evening. Active estradioL (CLIMARA) 0.0375 mg/[address] 1 patch on the skin 1 (one) time per week. Active progesterone (PROMETRIUM) 100 mg capsule Take 1 capsule (100 mg total) by mouth at bedtime. Active estradioL (Yuvafem) 10 mcg tablet vaginal tablet Insert 1 tablet (10 mcg total) into the vagina 2 (two) times a week. Active Social History Tobacco Use Types Packs/Day Years [...] 2007 Zoster Vaccines (1 of 2) 2007 Falls Risk Assessment 05/09/2022 Hepatitis C Screening 05/09/2022 Medicare Annual Wellness Visit 05/09/2022 Social Influencers of Health Screening 05/09/2022 Depression Screening 06/06/2024 Breast Cancer Screening 01/05/2025 01/06/20 23, 01/01/2022, 12/04/2020, Additional history exists COVID-19 Vaccine ( - 2024- season) 2025 Influenza Vaccine (#1) 2025 RSV Immunization Adult Patients (1 - 1-dose 75+ series) 2032 Osteoporosis Screening (Bone Density Screening) 02/13/2034 02/14/2024, 01/05/2023, 12/04/2020, Additional history exists Colorectal Cancer Screening: Colonoscopy 01/21/2035 01/21/2025 HIB Vaccines Aged Out No longer eligi [...] Procedure Name Priority Date/Time Associated Diagnosis Comments HP LINK COLONOSCOPY Routine 01/21/2025 9 :31 AM EDT [facility] DEXA AXIAL SKELETON Routine 02/14/2024 3:57 PM EDT Age-related osteoporosis without current pathological fracture [facility] SCREENING DIGITAL Routine 01/05/2023 10:58 AM EDT Encounter for screening mammogram for malignant neoplasm of breast from Last 3 Months or Most Recently Relevant to Health Maintenance Results * Colonoscopy (01/21/2025 9:31 AM EDT) us Historical Provider MD HEALTH MAINTENANCE Final Result * [facility] DEXA AXIAL SKELETON (02/14/2024 3:57 PM EDT) Anatomical Region Laterality Modality Mammography 02/14/2024 1:51 PM EDT Narrative 02/14/2024 3:57 PM EDT [facility] Diagnostic Imaging Department [address] [place] [address] Patient: DALYROCKY D.O.B./Age/Sex: 1955 - 68 - F Unit#: [id number] Location/Status: [facility] CLI [facility] Ordering Physician: JUDITH MERCER MD [facility] Dexa Axial Skeleton - 02/14/24 - 4942 Report Status:Signed History: Low estrogen state due to menopause. Personal history of fracture. Parent hip fracture. Rheumatoid arthritis. Comparison: 01/05/23 Findings: Bone densitometry is performed utilizing dual energy x-ray absorptiometry (DXA) in the [employer] unit. The lumbar spine and proximal femora [...] 45.0 percent Hip 10.1 percent. IMPRESSION: Osteoporosis. [id number] Dictating Physician: DIVINA YOUNG MD Electronically Signed by: DIVINA YOUNG MD Dic Date/Time: 02/14/241554 Sign date/Time: 02/14/241556 Procedure Note Divina Young MD - 03/21/2024 [facility] Diagnostic Imaging Department [address] [place] [address] Patient: ROCKY KAUFFMAN Angie Bell./Age/Sex: 1955 - 68 - F Unit#: [id number] Location/Status: [facility] CLI Mnemonic/Ordering Site: [facility] Ordering Physician: JUDITH MERCER MD [facility] Dexa Axial Skeleton - 02/14/24 - [id number] Report Status:Signed History: Low estrogen state due to menopause. Personal history offracture. Parent hip fracture. Rheumatoid arthritis. Comparison: 8/2/23 Findings: Bone densitometry is performed utilizing dual energy x-ray absorptiometry(DXA) in the [place] unit. The lumbar spine and proximal femora [...] 45.0 percent Hip 10.1 percent. IMPRESSION: Osteoporosis. 31851 Dictating Physician: DIVINA YOUNG MD Electronically Signed by: DIVINA YOUNG MD Dic Date/Time: 02/14/241554 Sign date/Time: 02/14/241556 us Judith Mercer MD IMG BI PROCEDURES Final Re sult * [facility] SCREENING DIGITAL (01/05/2023 10:58 AM EDT) Anatomical Region Laterality Modality Mammography 01/05/2023 9:13 AM EDT Narrative 01/05/2023 10:58 AM EDT [facility] Diagnostic Imaging Department [address] [place], [place] [id number] Patient: ROCKY KAUFFMAN Angie /Age/Sex: 1955 - 67 - F Unit#: [id number] Location/Status: SPDIMAM/REG CLI Mnemonic/Ordering Site: [facility] Ordering Physician: ASHLEY NEW MD [facility] Screening Digital - 01/05/23 - 957 Report Status:Signed EXAM: [facility] Screening Digital EXAM DATE AND TIME: 01/05/2023 9:59 AM HISTORY: Annual screening, COMPARISON: 01/01/2022, 12/04/2020, 10/25/2008, 09/17/2003 TECHNIQUE: Bilateral digital breast tomosynthesis was performed in the CC and MLO projections. Computer aided detection with [employer] 3D 3.1 was employed. TISSUE DENSITY: b. [...] with right cc spot compression tomography. 3341F, 7097F Dictating Physician: NACHO BERKOWITZ MD Electronically Signed by: NACHO BERKOWITZ MD Dic Date/Time: 01/05/23 1051 Sign date/Time: 01/05/23 1058 Procedure Note Nacho Berkowitz MD - 07/12/2023 [facility] Diagnostic Imaging Department [address] [place], [place] [id number] Patient: ROCKY KAUFFMAN Angie MendenhallB./Age/Sex: 1955 - 67 - F Unit#: [id number] Location/Status: [facility] CLI Mnemonic/Ordering Site: DIGSC/SPMAM Ordering Physician: ASHLEY NEW MD [facility] Screening Digital - 01/05/23 - 0958 Report Status:Signed EXAM: [facility] Screening Digital EXAM DATE AND TIME: 01/05/2023 9:59 AM HISTORY: Annual screening, COMPARISON: 01/01/2022, 12/04/2020, 10/25/2008, 09/17/2003 TECHNIQUE: Bilateral digital breast tomosynthesis was performed in the CCand MLO projections. Computer aided detection with [employer] 3D 3.1was employed. TISSUE DENSITY: b. There [...] spotcompression tomography. 3341F, 7025F Dictating Physician: NACHO BERKOWITZ MD Electronically Signed by: NACHO BERKOWITZ MD Dic Date/Time: 01/05/23 1051 Sign date/Time: 01/05/23 1058 Ashley New MD IMG BI PROCEDURES Final Result from Last 3 Months or Most Recently Relevant to Health Maintenance Insurance [employer] - [place] MEDICARE ADVANTAGE Care Teams Home Health Clinical Supervisor Relationship Specialty Start Date End Date Linsey Webber [place] [id number] [place] [address] PCP - General Internal Medicine 01/18/25
--- OUTSIDE RECORDS SUMMARY | 2025-05-01 08:48 | XMS_ITS | Patient Health Record ---
[facility] Address [address] [place] [address] Care Team Providers Care Practical Nurse Clinical Coordinator Name Role Phone Linsey Webber MD Primary Care Provider Unavailabl e Black, Kadie Unavailable [phone] Allergies Allergen (clinical drug ingredient) Drug/Non Drug [...] Duration) Notes Start Date End Date Status Yuvafem Active Trelegy Ellipta Acti ve Physical Therapy . . . 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) Active confirmed Problem Tightness of right gastrocnemius muscle (finding) (4530614495243488 6) Gastrocnemius equinus of right lower extremity (M62.461) Active confirmed Vital Signs Blood pressure diastolic 70 mm Hg 03/20/2025 Height 5ft 1in in 03/20/2025 Blood pressure systolic 120 mm Hg 03/20/2025 Weight 120 lbs 03/20/2025 BMI 22.67 kg/m2 03/20/2025 Procedures Procedure Date Ordered Date Performed Result Body Sit e 16747-ADFUQJC NAIL, 6 OR MORE 01/04/2025 N/A [id number] NAIL, 6 OR MORE 03/20/2025 N/A Encounters Encounter Location Date Provider Diagnosis [address] [address] 01/04/2025 Kadie Black Gastrocnemius equinu s of right lower extremity M62.461 ; Gastrocnemius equinus of left lower extremity M62.462 ; Pain in right toe(s) M79.674 ; Onychomycosis B35.1 ; Pain in left toe(s) M79.675 ; Pain in left foot M79.672 and Pain in right foot M79.[address] [address] 03/20/2025 Kadie Black Gastrocnemius equinu s of right lower extremity M62.461 ; Gastrocnemius equinus of left lower extremity M62.462 ; Pain in right toe(s) M79.674 ; Onychomycosis B35.1 ; Pain in left toe(s) M79.675 ; Pain in left foot M79.672 and Pain in right foot M79.671 [facility] [address] [place] [address] 10/31/2024 Kadie Black [address] [place] [address] 01/04/2025 Kadie Maurice [facility] [place] [address] [place] [address] 03/20/2025 Kadie Maurice Assessments Encounter Date Diagnosis (ICD Code) Assessment Notes Treatment Notes Treatment Clinical Notes Section Notes 01/04/2025 Gastrocnemius equinus of left lower extremity (ICD-10 - M62.462) 01/04/2025 Gastrocnemius equinus of right lower extremity (ICD-10 - M62.461) 03/20/2025 Gastrocnemius equinus of left lower extremity (ICD-10 - M62.462) 03/20/2025 Gastrocnemius equinus of right lower extremity (ICD-10 - M62.461) 03/20/2025 Pain in right toe(s) (ICD-10 - M79.674) 01/04/2025 Pain in right toe(s) (ICD-10 - M79.674) 01/04/2025 Onychomycosis (ICD-10 - B35.1) 03/20/2025 Onychomycosis (ICD-10 - B35.1) 01/04/2025 Pain in left toe(s) (ICD-10 - M79.675) 03/20/2025 Pain in left toe(s) (ICD-10 - M79.675) 01/04/2025 Pain in left foot (ICD-10 - M79.672) 03/20/2025 Pain in left foot (ICD-10 - M79.672) 03/20/2025 Pain in right foot (ICD-10 - M79.671) 01/04/2025 Pain in right foot (ICD-10 - M79.671) Plan Of Treatment Pending Test Test Name Order Date [id number] NAIL, 6 OR MORE 01/04/2025 [id number] NAIL, 6 OR MORE 03/20/2025 Next Appt Details Provider Name:Kadie Maurice , 07/17/2025 08:30:00 AM, [address] [facility] [place], [place], [address], Insurance Providers Payer Name Payer Address Payer Phone Subscriber Number Group Number Insured Name Patient Relationship to Insured Coverage Start Date Coverage End Date [employer] [facility] [address] [place] [address] [id number] Elizabeth Jimenez Self - patient is the insured Medical (General) History Medical History History ICD Code asthma Back,Hip,and Knee pain Cataracts Osteoporosis raynauds disease Sciatica Measles Mumps Chicken pox Joint implants/screws Surgical History Surgery Date(Month/Year) knee replacement 2020 thumb joint 2022
--- OUTSIDE RECORDS SUMMARY | 2025-05-01 08:49 | XMS_ITS | Patient Health Record ---
Author Organization [facility] Address [address] [address] Care Team Providers Care Relief Docking Master Name Role Phone ANETTE PINA Primary Care Provider Judith Rodriguez [phone] Allergies No Known Allergies Results Component Value Reference Range Notes PDF Report Reviewed date:05/28/2024 07:56:41 AM Interpretation: Performing Lab:[facility], [address] [facility], Phone - [phone], Director - Eddie Notes/Report: Clinical Information:SRC: Urine Culture, Routine-[id number] 7 Reviewed date:05/28/2024 07:58:06 AM Interpretation: Performing Lab:[facility]a, [address] [facility] [place], Phone - [phone], Director - Eddie Notes/Report: Clinical Information:SRC: Clinical [...] Tetracycline S Tobramycin S Trimethoprim/Sulfa S Urinalysis, Complete-[id number] Reviewed date:05/28/2024 07:58:19 AM Interpretation: Performing Lab:Shauna Gold, [address], [place], Phone - [phone], Director - Eddie Notes/Report: Clinical Information:SRC: Clinical Information:SRC:UC Specific Barton 1.006 1.005-1.030 pH 6.5 5.0-7.5 Urine-Color Yellow [...] Bacteria Many None seen/Few PDF Report Reviewed date:01/11/2025 04:39:39 PM Interpretation: Performing Lab:Shauna Jean, [address], [address], [place], Phone - [phone], Director - Jeffery Notes/Report: Clinical Information:CERV/VAG [id number] Dates / Results....12/09/2021 NIL NEG HPV Other..............Post Menopausal No. of containers..01 ThinPrep Vial [id number] No Culture 30 Plus Reviewed date:01/11/2025 04:40:16 PM Interpretation: Performing Lab:Shauna Jean, [address], [address], [place], Phone - [phone], Director - Jeffery Notes/Report: Clinical Information:CERV/VAG [id number] Dates / Results....12/09/2021 NIL NEG HPV Other..............Post Menopausal No. of containers..01 ThinPrep Vial DIAGNOSIS: NEGATIVE FOR INTRAEPITHELIAL LESION OR MALIGNANCY. Specimen adequacy: Satisfactory for evaluation. Endocervical and/or squamous metaplastic cells (endocervical component) are present. Clinician provided ICD10: Z01.419 Z11.51 Performed by: Adrian Glasgow , Sales Exec (ASCP) . . Note: The Pap smear [...] amplification test detects fourteen high-risk HPV types (16,18,31,33,35,39,45,51,5 2,56,58,59,66,68) without differentiation. HPV Genotype Reflex Criteria not met, HPV Genotype not performed. Reason For Referral No Information Medications Medication SIG (Take, Route, Frequency, Duration) Notes Start Date End Date Status Calcium 1 tab Oral; Duration : 14 days chews Active Airborne - as directed Orally Active Fosamax 70 MG 1 tablet 30 minutes before the first food, beverage or medicine of the day with plain water Orally Active Yuvafem 10 MCG 1 tablet Vaginal TWI CE A WEEK; Duration: 90 days 12/31/2024 Active Prometrium 100 MG 1 capsule at bedtime Orally Once a day; Duration: 90 days 01/10/2025 Active Prometrium 100 MG 1 capsule at bedtime Orally Once a day; Duration: 90 days 12/31/2024 Active Estradiol 0.0375 MG/24HR 1 patch to skin Transdermal ONCE A WEEK; Duration: 90 days 01/10/2025 Active Estradiol 0.0375 MG/24HR 1 patch to skin Transdermal ONCE A WEEK; Duration: 90 days 12/31/2024 Active Xyzal 5 MG 1 tablet in the even ing Orally Once a day; Duration: 30 day(s) Active Ativan 1 MG 1 tablet Orally Twic e a day as needed; Duration: 30 days 01/02/2020 Active Meloxicam 15 MG TAKE 1 TABLET BY CHAPARRO TH EVERY DAY Oral; Duration: 30 Active Immunizations Vaccine Route Administration Date Status [...] W/U Status Risk Notes Problem Muscle pain (28857352) Unspecified myalgia and myositis (729.1) Active confirmed Problem Menopause (619203601) Menopausal and female climacteric states (N95.1) Active confirmed Problem SI - Stress incontinence (73285164) Stress incontinence (female) (male) (N39.3) Active confirmed Problem Age-related osteoporosis (742348889) Age-related osteoporosis without current pathological fracture (M81.0) Active confirmed Problem Anxiety disorder (787793612) Anxiety disorder, unspecified (F41.9) Active confirmed Problem Fibromyalgia (374822851) Fibromyalgia (M79.7) Active confirmed Problem Functional urinary incontinence (807005049) Functional urinary incontinence (R39.81) Active confirmed Problem Menopause (217501762) Menopausal and female climacteric states (N95.1) Active confirmed Problem Anxiety state (016296108) Anxiety state, unspecified (300.00) Active confirmed Major Problem Asthma (disorder) (759549630) Asthma, unspecified, unspecified status (493.90) Active confirmed Major Problem Metrorrhagia (20791188) Metrorrhagia (626.6) Active confirmed Diag Problem Abnormal vaginal bleeding (810692050) Other disorder of menstruation and other abnormal bleeding from female genital tract (626.8) Active confirmed Major Problem Menopausal symptom (69004212) Symptomatic menopausal or female climacteric states (627.2) Active confirmed Diag Problem Backache (501317459) Unspecified backache (724.5) Active confirmed Major Problem Enthesopathy of hip region (44300287) Enthesopathy of hip region (726.5) Active confirmed Diag Problem Joint pain (69048355) Pain in joint, site unspecified (719.40) Active confirmed Diag Problem Cervicalgia (86417969) Cervicalgia (723.1) Active confirmed Diag Problem Gynecological examination normal (981706387905984) Routine gynecological examination (V72.31) Active confirmed Problem Dietary management surveillance (084186193) Dietary surveillance and counseling (V65.3) Active confirmed Diag Problem Exercises teaching, guidance, and counseling (446616084) Exercise counseling (V65.41) Active confirmed Diag Vital Signs Temperature 98.2 degrees Fahrenheit 01/10/2025 Blood pressure diastolic 64 mm Hg 01/10/2025 Height 60.5 in 01/10/2025 Blood pressure systolic 106 mm Hg 01/10/2025 Weight 113 lbs 01/10/2025 BMI 21.7 kg/m2 01/10/2025 Encounters Encounter Location Date Provider Diagnosis [address] [address] 01/10/2025 Judith Sharma Encounter for gynecological examination (general) (routine) without abnormal findings Z01.419 ; Encounter for screening for human papillomavirus (HPV) Z11.51 ; Encounter for screening mammogram for malignant neoplasm of breast Z12.31 ; Hormone replacement therapy Z79.890 ; Age-related osteoporosis without current pathological fracture M81.0 and Dense breasts, unspecified R92.[address] [address] 05/16/2024 Judith Sharma Frequency of micturition R35.[address] [address] 05/25/2024 Judith Sharma Urinary tract infection, site not specified N39.[address] [address] 06/01/2024 Judith Sharma Total [address] [address] 12/31/2024 Judith Zachary Total [address] [place] [address] 12/31/2024 Judith Teeanueva Assessments Encounter Date Diagnosis (ICD Code) Assessment Notes Treatment Notes Treatment Clinical Notes Section Notes 05/16/2024 Frequency of micturition (ICD-10 - R35.0) 05/25/2024 Urinary tract infection, site not specified (ICD-10 - N39.0) 01/10/2025 Encounter for gynecological examination (general) (routine) [...] 3D MAMMOGRAMS WERE RECOMMENDED. Plan Of Treatment Pending Test Test Name Order Date MAMMOGRAM, SCREENING 09/30/2014 MAMMOGRAM, SCREENING 12/09/2021 MAMMOGRAM, SCREENING 12/10/2022 MAMMOGRAM, SCREENING 01/09/2024 MAMMOGRAM, SCREENING 01/10/2025 25OH VITAMIN D 09/07/2017 25OH VITAMIN D 10/02/2018 COMPLETE URINALYSIS 01/11/2022 COMPREHENSIVE METABOLIC PANEL 09/07/2017 COMPREHENSIVE METABOLIC PANEL 10/02/2018 N-TELOPEPTIDE CROSS 10/02/2018 N-TELOPEPTIDE CROSS 09/07/2017 PTH, INTACT 09/07/2017 PTH, INTACT 10/02/2018 THIN PREP,HPV,MAYCO IF HPV+ (>29YR)(SCRN) 07/12/2016 TSH 10/02/2018 TSH 09/07/2017 URINE CULTURE 01/11/2022 BONE DENSITY 12/10/2022 BONE DENSITY 01/09/2024 MM Digital Mammo Screening 01/10/2025 MM Digital Mammo Screening 01/09/2024 MM Digital Mammo Screening 12/10/2022 MM Digital Mammo Screening 12/09/2021 MM Digital Screening Mammogram 3D 2020 Urinalysis, Complete-[id number] 05/25/2024 Urine Culture, Routine-[id number] 05/25/2024 Next Appt Details Provider Name:Judith Rosas ren, 01/13/2026 10:20:00 AM, [address] [facility], [address], [place], [address], Insurance Providers Payer Name Payer Address Payer Phone Subscriber Number Group Number Insured Name Patient Relationship to Insured Coverage Start Date Coverage End Date [employer] MEDICARE PPO [address] [place] [address] [id number] HAMILTON Self - patient is the insured Medical (General) History Medical History History ICD Code Pain in unspecified joint M25.50 Cervicalgia M54.2 Osteophyte, unspecified hip M25.759 Excessive and frequent menstruation with irregular cycle N92.1 Menopausal and female climacteric states N95.1 Unspecified asthma, uncomplicated J45.90 9 Anxiety disorder, unspecified F41.9 Other dorsalgia M54.89 Other specified abnormal uterine and vag inal bleeding N93.8 Major depressive disorder, recurrent, mi ld F33.0 Hormone replacement therapy (postmenopau nehemias) Z79.890 Fracture of rib(s), sternum, larynx, and trachea 807 Inconclusive mammogram R92.2 Mammographic heterogeneous density, bila teral breasts R92.333 Dense breasts, unspecified R92.30 Fibromyalgia M79.7 Age-related osteoporosis without current pathological fracture M81.0 Other specified disorders of bone densit y and structure, multiple sites M85.89 Surgical History Surgery Date(Month/Year) Bilateral Tubal Ligation Colonoscopy Nasal Septum Surgery Oral Sugery [place] Teeth Right Knee Surgery - Meniscus Left Knee Replacement 10/09/19 Right Knee Replacement 11/23/19 BASAL CELLM REMOVAL 04/2023 Hospitalization History Reason Date(Month/Year) See Surgical Hx 3 Vaginal Deliveries
--- OUTSIDE RECORDS SUMMARY | 2025-05-01 08:49 | XMS_ITS | Clinical Summary ---
Author Organization [facility] Address [address] [place] [address] Phone Care Team Providers Care Director Of Cardiology Name Role Phone Linsey Webber MD Primary Care Provider [phone] Allergies Active Allergy Reactions Criticality Noted Date [...] [address] vaginally. 3 Active ve-hf-X-theanin e-herb no.310 (A[place] EVERYDAY STRESS AWAY) 1,000 [...] 2007 OSTEOPOROSIS SCREENING INITI AL (ONE-TIME) 2022 INFLUENZA VACCINE (#1) 2025 COVID-19 VACCINE (3 - 2024-2 6 season) 2025 07/28/2020, 07/07/2020 Adult Td,Tdap Booster 12/02/2031 12/01/2021 RSV VACCINE (1 - 1-dose 75+ series) 2032 SMOKING STATUS SCREENING (On ce After 26 Yrs) Completed 01/05/2024 HEPATITIS A VACCINES Aged Out No long er eligible based on patient's age to complete this topic HIB VACCINES Aged Out No longer eligi ble based on patient's age to complete this topic IPV VACCINES Aged Out No longer eligi ble based on patient's age to complete this topic MENINGOCOCCAL VACCINES (ACWY) Aged Out No longer eligible based on patient's age to complete this topic MENINGOCOCCAL VACCINES (B) Aged Out N o longer eligible based on patient's age to complete this topic Medical Devices Not on file Insurance [employer] [facility] [employer] [facility] [employer] [facility] Care Teams Director Of Cardiology Relationship Specialty Start Date End Date Linsey Webber MD [address] [place] [address] PCP - General Internal Medicine 09/02/23 Additional Source Comments The information contained in this document represents components of the legal health record. It is not the complete legal health record.[facility]
== END 2025-05-01 09:06 | disposition home or self-care (01) ==
LOC: HO.HPS 08:26
PROVIDERS: PCP Internal Medicine; Visit Provider Hospitalist
DX: J45.40 Moderate persistent asthma, uncomplicated (principal); R05.3 Chronic cough; T78.40XA Allergy, unspecified, initial encounter; J30.9 Allergic rhinitis, unspecified
CPT/HCPCS: 99214